=== PATIENT | female | born 1965 | race Caucasian/White ===

== ENCOUNTER 2025-03-17 21:01 | Inpatient (IN) | payer MEDICAID, SELFPAY ==
[2025-03-17] VITALS (28 sets, daily range): BP systolic 80–120; BP diastolic 51–79; PULSE 92–108; RESP 17–87; TEMP 36.4; O2SAT 60–100; BMI 38.7
--- NOTE | 2025-03-17 21:02 | EDNOTE_ITS ---
Neuro Symptoms Deficit-RME/HPI General Stated Complaint: SLURRED SPEECH, RIGHT SIDE FACIAL DROOP Time Seen by Provider: 03/17/25 21:10 Arrival date/time: 03/17/25 21:01 RME / HPI RME / HPI Narrative: This section includes all my notes and documentations, including HPI, PE, and ED course. Jama Foote MD HPI: 60yo female BIBA from home here with slurred speech and right-sided facial droop. Patient was seen by me immediately upon ED arrival at 2100. Her symptoms 40 minutes [employer]. Patient notes having difficulty articulating her words. Blood sugar en route was 115. No other complaints reported. ROS: All negative except as documented in HPI. Physical Exam: General: Alert and oriented. No acute distress. Eyes: Conjunctivae and lids clear. EOMI. PERRL. ENT: No nasal congestion. Neck: Supple. No carotid bruit. No JVD. Heart: RRR. Lungs: No respiratory distress. Moderately decreased air movement with diffuse wheezing. Abdomen: Soft and nontender. Legs: No clubbing, cyanosis, edema. Skin: Warm and dry. Neuro: Alert and oriented X 3. Right facial droop noted. Right leg weakness. I reviewed EMS notes. I reviewed all diagnostic test results. My interpretation of the EKG is sinus rhythm with no acute ST?T changes. My interpretation of the chest x-ray is infiltrates. My review of the CT head report is NAD. My review of the CT angio head neck report is NAD. Blood tests remarkable for WBC 34.3, Creatinine 1.4, Lactic Acid 2.7, Magnesium 1.3, Troponin 0.078, BNP 380, Procalcitonin 25.40, CRP 12.3. COVID/Influenza negative. At this point, diagnoses include CVA (cerebrovascular accident), Sepsis, Acute respiratory failure with hypoxia, Pneumonia, Elevated troponin, COPD exacerbation, Hypomagnesemia. Treatment here included NS, Zofran, Tnkase, Azithromycin, Rocephin, Magnesium, Duoneb. I discussed the case with Dr. Torres, teleneurologist. About the presentation and exam and diagnostics and treatments here. And need of further care in the hospital. Recommended TNK and admission. I discussed the case with our ICU resident. About the presentation and exam and diagnostics and treatments here. And need of further care in the hospital. Will accept the patient. Jama Foote MD Related Data Home Medications ?Medication ?Instructions ?Recorded ?Confirmed No Known Home Medications 10/15/2109/29 Allergies Allergy/AdvReac Type Severity Reaction Status Date / Time latex Allergy Verified 03/25/13 14:26 Review of Systems Review of Systems Systems Reviewed: All systems reviewed, normal except as documented Past Medical History Past Medical History CARDIAC: Negative Congestive Heart Failure RESPIRATORY: Negative Chronic Obstructive Pulmonary Disease (COPD) GENITOURINARY: Negative Renal Disease ENDOCRINE: Negative Diabetes Mellitus Type 1 or Diabetes Mellitus Type 2 Social History SMOKING STATUS: Current every day smoker ED Exam Narrative Physical exam: As noted in HPI. Course Course Course Narrative: 2217: Sepsis alert initiated. Orders made at this time are congruent with ED Adult Sepsis Order List. Re-evaluation is to be completed. NS IVF started at 2212. Sepsis re-evaluation is pending at the time of admission. Quality Measures Suspected type of Stroke: Acute Ischemic Tenecteplase given: within 60 min of arrival stroke and Possible source: pulmonary Blood cultures ordered: yes Antibiotic ordered: Yes Pertinent labs: 03/17/25 03/17/25 21:10 21:52 Lactic Acid 2.7 H mMol/L (0.4-2.0) Procalcitonin 25.40 H ng/ml (0.0-0.49) sepsis Orders Category Date Time Status Admit to Inpatient Status Routine Admission 03/17/25 22:57 Active Patient Condition Routine Admission 03/17/25 22:57 Ordered Aspiration precautions NOW Care 03/17/25 23:05 Active Bedside Blood Glucose NOW Care 03/17/25 21:03 Active Bedside COVID-19 Antigen Test NOW Care 03/17/25 21:39 Active Bedside Influenza A&B Antigen Test NOW Care 03/17/25 21:39 Completed COVID-19 Screening Questionnaire NOW Care 03/17/25 22:50 Active Jewelry Maker NOW Care 03/17/25 21:03 Active Continuous Pulse Oximetry NOW Care 03/17/25 21:03 Completed Continuous Pulse Oximetry NOW Care 03/17/25 23:02 Completed Decision to Admit X1 Care 03/17/25 22:50 Completed EKG (ED ONLY) *Do not use* NOW Care 03/17/25 21:03 Completed In and Out Catheter NEEDED Care 03/17/25 21:03 Active Insert IV NOW Care 03/17/25 21:03 Active NIH Stroke Scale Q4HX8,QSHIFT Care 03/17/25 21:46 Active NIH Stroke Scale now Care 03/17/25 21:03 Active NPO NOW Care 03/17/25 21:03 Active NPO NOW Care 03/17/25 23:05 Active Neuro Check Q15M Care 03/17/25 21:46 Active Neuro Check Q1H Care 03/18/25 05:30 Active Neuro Check Q30MIN Care 03/17/25 23:30 Active Notify provider NEEDED Care 03/17/25 22:57 Active Nurse Swallow Screen x1 Care 03/17/25 21:03 Active Seizure precautions NEEDED Care 03/17/25 23:03 Active Sequential Compression Device QSHIFT Care 03/17/25 23:08 Active Strict Intake and Output Routine Care 03/17/25 22:59 Ordered Vital Signs Q5M Care 03/17/25 21:36 Active Consult to Neurology / Tele-Neurology Routine Cons 03/17/25 21:03 Active Diet NPO (NOW) Diet 03/17/25 23:05 Active CA echo doppler complete Stat Exams 03/17/25 23:[address] angio stroke protocol Stat Exams 03/17/25 21:[address] stroke protocol Stat Exams 03/17/25 21:03 Completed EKG (ED Only) Stat Exams 03/17/25 21:03 Draft XR chest 1V portable Stat Exams 03/17/25 21:03 Completed Alcohol, Blood Medical Stat Lab 03/17/25 21:10 Completed Arterial Blood Gas Stat Lab 03/17/25 22:10 Completed B-Type Natriuretic Peptide Stat Lab 03/17/25 21:10 Completed Bilirubin,Direct Stat Lab 03/17/25 21:10 Completed Blood Culture (Lab) Stat Lab 03/17/25 21:52 Received CBC AM DRAW Lab 03/18/25 05:00 Ordered CBC AM DRAW Lab 03/19/25 05:00 Ordered CBC AM DRAW Lab 03/20/25 05:00 Ordered CBC Stat Lab 03/17/25 21:10 Completed CRP [C-Reactive Protein] Stat Lab 03/17/25 21:52 Completed Comprehensive Metabolic Panel AM DRAW Lab 03/18/25 05:00 Ordered Comprehensive Metabolic Panel AM DRAW Lab 03/19/25 05:00 Ordered Comprehensive Metabolic Panel AM DRAW Lab 03/20/25 05:00 Ordered Comprehensive Metabolic Panel Stat Lab 03/17/25 21:10 Completed Drug Screen,Urine Stat Lab 03/17/25 21:03 Ordered ESR [Sed Rate (ESR)] Stat Lab 03/17/25 21:52 Completed Free T4 (Free Thyroxine) Stat Lab 03/17/25 21:10 Completed Lactate (Lactic Acid) Routine Lab 03/18/25 03:00 Ordered Lactate (Lactic Acid) Stat Lab 03/17/25 21:10 Completed Lipid Panel AM DRAW Lab 03/18/25 05:00 Ordered Magnesium AM DRAW Lab 03/18/25 05:00 Ordered Magnesium AM DRAW Lab 03/19/25 05:00 Ordered Magnesium AM DRAW Lab 03/20/25 05:00 Ordered Magnesium Stat Lab 03/17/25 21:10 Completed Partial Thromboplastin Time AM DRAW Lab 03/18/25 05:00 Ordered Partial Thromboplastin Time Stat Lab 03/17/25 21:10 Completed Phosphorous AM DRAW Lab 03/18/25 05:00 Ordered Phosphorous AM DRAW Lab 03/19/25 05:00 Ordered Phosphorous AM DRAW Lab 03/20/25 05:00 Ordered Procalcitonin Stat Lab 03/17/25 21:52 Completed Prothrombin Time with INR AM DRAW Lab 03/18/25 05:00 Ordered Prothrombin Time with INR Stat Lab 03/17/25 21:10 Completed TSH [Thyroid Stimulating Hormone] Stat Lab 03/17/25 21:10 Completed Troponin I Q6H Lab 03/18/25 03:00 Ordered Troponin I Q6H Lab 03/18/25 09:00 Ordered Troponin I Q6H Lab 03/18/25 15:00 Ordered Troponin I Q6H Lab 03/18/25 21:00 Ordered Troponin I Q6H Lab 03/19/25 03:00 Ordered Troponin I Stat Lab 03/17/25 21:10 Completed Urinalysis Stat Lab 03/17/25 21:03 Ordered Urine Culture Stat Lab 03/17/25 21:03 Ordered Acetaminophen Tab [Tylenol Tab] Med 03/17/25 23:02 Active 650 mg PO Q6H PRN Albuterol/Ipratr Rt Julisa [Duoneb Rt Julisa] Med 03/18/25 03:00 Active 3 ml INH Q4HRRT Albuterol/Ipratr Rt Julisa [Duoneb Rt Julisa] Med 03/17/25 22:43 Discontinued 3 ml INH X1 ONE Azithromycin Inj [Zithromax Inj] 500 mg Med 03/17/25 22:23 Discontinued Sodium Chloride 0.9% 250 ml [Ns] 250 ml IV X1 Famotidine Inj [Pepcid Inj] Med 03/18/25 09:00 Active 20 mg IVP DAILY Labetalol IV [Trandate IV] Med 03/17/25 21:31 Active 10 mg IVP PRNMRX1 PRN Labetalol IV [Trandate IV] Med 03/17/25 21:31 Active 10 mg IVP PRNMRX1 PRN Labetalol IV [Trandate IV] Med 03/17/25 21:03 Discontinued 10 mg IVP Q15M PRN Magnesium Sulfate 2 GM Ivpb [Magnesium Sulfate Ivpb] Med 03/17/25 22:19 Discontinued 2 gm in 50 ml IV X1 MethylPREDNISolone.* [SoluMEDROL Inj] Med 03/17/25 22:43 Discontinued 125 mg IVP X1 ONE Nicardipine/Ns 20Mg Ivpb [Cardene Ivpb] Med 03/17/25 21:31 Active 20 mg in 200 ml IV 5 mg/hr Ondansetron Inj [Zofran Inj] Med 03/17/25 21:03 Active 4 mg IVP Q4HR PRN Ondansetron Inj [Zofran Inj] Med 03/17/25 23:02 Active 4 mg IVP Q6H PRN Sodium Chloride 0.9% 1000 ml [Ns] 1,000 ml Med 03/17/25 22:19 Discontinued IV 999 mls/hr Sodium Chloride 0.9% 1000 ml [Ns] 1,000 ml Med 03/17/25 21:15 Active IV Q10H Tenecteplase Inj [TNKase Inj] Med 03/17/25 21:31 Discontinued 25 mg IV X1 ONE cefTRIAXone/D5w 1gm IV premix [Rocephin/D5w 1gm IV Med 03/17/25 22:19 Discontinued premix] 1 gm in 50 ml IV X1 Code Status Routine Oth 03/17/25 22:57 Ordered Oxygen Delivery NOW RT 03/17/25 21:03 Active Vital Signs Vital signs: Vital Signs Pulse Rate 104 H 07/20/25 21:23 Neuro Symptoms / Deficit MDM Narrative MDM Narrative:: 60yo female BIBA from home here with slurred speech and right-sided facial droop. Patient was seen by me immediately upon ED arrival at 2100. Per EMS, patient started having her symptoms 40 minutes [employer]. Patient notes having difficulty articulating her words. Blood sugar en route was 115. No other complaints reported. Patient data External records reviewed:: [facility] previous records (Per chart review, patient has no relevant previous ED visits or admissions to this facility.) and EMS form Clinical information provided by:: patient and EMS Social determinants that could affect healthcare access:: none Patient has the following chronic illnesses:: COPD How is presenting disease/condition affected by chronic disease/condition?: uneffected by Evaluation data The following diagnostics were reviewed and interpreted by me:: lab results, radiology exam(s) and EKG tracing(s) (My interpretation of the EKG is: Sinus tachycardia (104 bpm) with nonspecific ST-T changes. Jama Foote MD) Lab and/or radiology exams considered but not ordered:: none Interpretation Summary: I reviewed all diagnostic test results. My interpretation of the EKG is sinus rhythm with no acute ST?T changes. My interpretation of the chest x-ray is infiltrates. My review of the CT head report is NAD. My review of the CT angio head neck report is NAD. Blood tests remarkable for WBC 34.3, Creatinine 1.4, Lactic Acid 2.7, Magnesium 1.3, Troponin 0.078, BNP 380, Procalcitonin 25.40, CRP 12.3. COVID/Influenza negative. Medications / Prescriptions Medications or Prescriptions considered but not ordered:: none Medication administrations:: Medication Administration History Acetaminophen (Acetaminophen 325 Mg Tablet) 650 mg PO Q6H PRN PRN Reason: Fever >101.5 Stop: 04/16/25 23:01 Acetylcysteine (Acetylcysteine Rt Julisa 10% 4 Ml Nebu) 3 ml INH Q4HRRT PRN PRN Reason: SHORTNESS OF BREATH OR WHEEZE Stop: 04/17/25 01:29 Last Admin: 03/18/25 01:59 Dose: 3 ml Documented By: GB Albuterol/Ipratropium (Albuterol/Ipratropium (Duoneb) Rt Julisa 3 Ml Nebu) 3 ml INH Q4HRRT [facility] Stop: 04/17/25 02:59 Last Admin: 03/18/25 01:59 Dose: 3 ml Documented By: GB Famotidine (Famotidine Inj 10 Mg/Ml Vial 2 Ml) 20 mg IVP DAILY [facility] Stop: 04/17/25 08:59 Sodium Chloride (Ns) 1,000 mls @ 100 mls/hr IV Q10H [facility] Stop: 04/16/25 21:14 Last Admin: 03/17/25 22:13 Dose: 100 mls/hr Documented By: CRISTHIAN Nicardipine/Sodium Chloride (Cardene Ivpb) 20 mg in 200 mls @ 50 mls/hr IV .Q4H PRN; Protocol PRN Reason: Per Nicardipine Stroke Protocol Stop: 04/16/25 21:30 Piperacillin/Tazobactam/Dextrose (Zosyn) 50 mls @ 100 mls/hr IV Q6HR [facility] Stop: 03/24/25 23:22 Vancomycin/Sodium Chloride (Vancomycin/Ns 1 Gm Ivpb) 200 mls @ 120 mls/hr IV Q100M [facility] Stop: 03/18/25 03:04 Last Admin: 03/18/25 00:34 Dose: 120 mls/hr Documented By: RACHNA Labetalol HCl (Labetalol Inj 5 Mg/Ml Vial 20 Ml) 10 mg IVP PRNMRX1 PRN PRN Reason: SBP > 185 mmHg and/or DBP > 110 Labetalol HCl (Labetalol Inj 5 Mg/Ml Vial 20 Ml) 10 mg IVP PRNMRX1 PRN PRN Reason: SBP > 180 mmHg or DBP > 105 Ondansetron HCl (Ondansetron Inj 2 Mg/Ml Inj 2 Ml) 4 mg IVP Q4HR PRN PRN Reason: NAUSEA OR VOMITING Stop: 04/16/25 21:02 Ondansetron HCl (Ondansetron Inj 2 Mg/Ml Inj 2 Ml) 4 mg IVP Q6H PRN; Protocol PRN Reason: NAUSEA OR VOMITING Stop: 04/16/25 23:01 Pharmacy Consult (Vancomycin Pharmacy To Dose 1 Each Each) 1 each IV QDAY [facility] Stop: 04/17/25 08:59 Discontinued Medications Acetylcysteine (Acetylcysteine Rt Julisa 10% 30 Ml Nebu) 3 ml INH X1 ONE Stop: 03/18/25 01:19 Albuterol/Ipratropium (Albuterol/Ipratropium (Duoneb) Rt Julisa 3 Ml Nebu) 3 ml INH X1 ONE Stop: 03/17/25 22:44 Last Admin: 03/17/25 23:24 Dose: 3 ml Documented By: ANDREW Ceftriaxone Sodium/Dextrose (Rocephin/D5w 1gm Iv Premix) 1 gm in 50 mls @ 100 mls/hr IV X1 ONE Stop: 03/17/25 22:48 Last Infusion: 03/17/25 23:20 Dose: Infused Documented By: Admin: 03/17/25 22:48 Dose: 100 mls/hr Documented By: CRISTHIAN Magnesium Sulfate (Magnesium Sulfate Ivpb) 2 gm in 50 mls @ 25 mls/hr IV X1 ONE Stop: 03/18/25 00:18 Last Admin: 03/18/25 00:28 Dose: 25 mls/hr Documented By: RACHNA Sodium Chloride (Ns) 1,000 mls @ 999 mls/hr IV .Q1H1M ONE Stop: 03/17/25 23:19 Last Admin: 03/17/25 22:48 Dose: 999 mls/hr Documented By: CRISTHIAN Azithromycin 500 mg/ Sodium (Chloride) 250 mls @ 250 mls/hr IV X1 ONE Stop: 03/17/25 23:22 Last Admin: 03/17/25 23:44 Dose: 250 mls/hr Documented By: RACHNA Potassium Chloride (Kcl Ivpb) 10 meq in 100 mls @ 100 mls/hr IV Q1H [facility] Stop: 03/18/25 01:27 Last Admin: 03/18/25 00:30 Dose: 50 mls/hr Documented By: RACHNA Sodium Chloride (Ns) 1,000 mls @ 999 mls/hr IV .Q1H1M ONE Stop: 03/18/25 00:29 Last Admin: 03/18/25 00:00 Dose: 999 mls/hr Documented By: RACHNA Piperacillin/Tazobactam/Dextrose (Zosyn) 3.375 gm in 50 mls @ 100 mls/hr IV X1 ONE Stop: 03/17/25 23:59 Last Admin: 03/18/25 01:10 Dose: 100 mls/hr Documented By: RACHNA Labetalol HCl (Labetalol Inj 5 Mg/Ml Vial 20 Ml) 10 mg IVP Q15M PRN PRN Reason: HYPER Methylprednisolone Sodium Succinate (Methylprednisolone Sod Succ 62.5 Mg/Ml 2ml Vial) 125 mg IVP X1 ONE Stop: 03/17/25 22:44 Last Admin: 03/17/25 23:10 Dose: 125 mg Documented By: CRISTHIAN Sodium Chloride (Sodium Chloride Rt 10% 15 Ml Nebu) 5 ml INH X1 ONE Stop: 03/18/25 00:19 Tenecteplase (Tenecteplase Inj 50 Mg Vial) 25 mg IV X1 ONE Stop: 03/17/25 21:32 Last Admin: 03/17/25 21:42 Dose: 25 mg Documented By: CRISTHIAN Co-signed By: JANA NS, Zofran, Tnkase, Azithromycin, Rocephin, Magnesium, Duoneb, Solumedrol Consultations Consultation(s) initiated? (list below): Yes Consultation #1 (Physician, Specialty, Details): I discussed the case with our teleneurologist. About the presentation and exam and diagnostics and treatments here. And need of further care in the hospital. Recommended TN K on admission. Consultation #2 (Physician, Specialty, Details): I discussed the case with our ICU resident. About the presentation and exam and diagnostics and treatments here. And need of further care in the hospital. Will accept the patient. Diagnosis Neuro Differential Diagnosis: subarachnoid hemorrhage, cerebrovascular accident and transient cerebral ischemia Most likely diagnosis given after review of the tests above:: CVA (cerebrovascular accident), Sepsis, Acute respiratory failure with hypoxia, Pneumonia, Elevated troponin, COPD exacerbation Admission Indicated Admission indicated?: indicated Explain why admission is indicated or not indicated:: CVA (cerebrovascular accident), Sepsis, Acute respiratory failure with hypoxia, Pneumonia, Elevated troponin, COPD exacerbation Admission Request Was there a request for admission?: Yes Admission Attestation Admission request attestation: Discussed case with ICU service regarding admission. Discussed patients ED course, exam findings, labs, and radiology results. The Hospitalist [agrees] to accept the patient for admission. Disposition Plan Disposition Plan: Admit Critical Care Time Critical Care Time Critical Care Time: Yes Total Critical Care Time (min.): 50 Attestation: Due to a high probability of clinically significant, life threatening deterioration, the patient required my highest level of preparedness to intervene emergently and I personally spent this critical care time directly and personally managing the patient. This critical care time included obtaining a history; examining the patient; ordering and review of studies; arranging urgent treatment with development of a management plan; evaluation of patient's response to treatment; frequent reassessment; and discussions with family and other providers. It was exclusive of separately billable procedures and treating other patients and teaching time. Jama Foote MD Discharge Plan Plan Patient Disposition: Admit Acute Care w/in Hospital Problem List Clinical Impression: CVA (cerebrovascular accident), Sepsis, Acute respiratory failure with hypoxia, Pneumonia, Elevated troponin, COPD exacerbation, Hypomagnesemia
--- NOTE | 2025-03-17 21:02 | PC.NURSE ---
Case Consult 03/17/2025 21:02:27 [facility] Case # [id number] has been created.
--- NOTE | 2025-03-17 21:03 | XR_ITS ---
Examination: CT brain head without contrast. 2-D sagittal coronal reconstructions Date and time of exam:March 17, 2025 2110 hours INDICATIONS: Stroke alert, onset focal neurologic deficit today CTDI: vol (mGy):47.7. DLP: (mGycm):904 Technique: Multiple CT axial sections of the brain have been obtained, 5 mm slice thickness. Contrast has not been administered. 2-D sagittal, coronal reconstructions have been obtained Low dose protocols were performed. One or more of the following dose reduction techniques were used; automated exposure control, adjustment of the mA and/or KV according to patient size, use of iterative reconstruction technique. Findings: No significant ventricular enlargement. Intra-axial or extra-axial hemorrhage density is not seen. No mass effect or midline shift Basal cisterns are not remarkable. Fourth ventricle is midline. Cranial vault intact. Impression: Negative for acute hemorrhage, mass effect or midline shift
--- NOTE | 2025-03-17 21:03 | EKG_ITS ---
[facility] Test Date: 2025-03-17 Pat Name: NIESHA STONE Department: Room: - Gender: Female [employer]: : 1965 Requested By: Jama Modi Order Number: [id number] Reading MD: Jama Modi Measurements Intervals [place] Rate: 104 P: 38 KS: 175 QRS: 53 QRSD: 85 T: 51 QT: 331 QTc: 436 Interpretive Statements SINUS TACHYCARDIA LOW QRS VOLTAGE IN PRECORDIAL LEADS [QRS DEFLECTION < 1.0 mV IN CHEST LEADS] POSSIBLE ANTERIOR MYOCARDIAL INFARCTION , PROBABLY OLD [30 ms Q WAVE IN V3/V4, OR R < 0.2 mV IN V4] ABNORMAL RHYTHM ECG No previous ECG available for comparison /store/S0/[id number].pdf
--- NOTE | 2025-03-17 21:03 | XR_ITS ---
Examination: AP chest single view Technique one AP portable upright chest single view Date and time: March 17, 2025 at 2144 hours, comparison October 15, 2021 INDICATIONS: Focal neurologic deficit today. FINDINGS: Fairly diffuse left lung pneumonia Normal heart size Right lung clear. Osseous structures intact IMPRESSION: Diffuse left lung pneumonia, consider aspiration pneumonia
--- NOTE | 2025-03-17 21:03 | XR_ITS ---
Examination: CTA carotids with intravenous contrast CTA brain, head with intravenous contrast. 2-D sagittal, coronal reconstructions. 3-D reconstructions. Exam date and time: March 17, 2025 2115 hours INDICATIONS: Stroke alert today, onset focal neurologic deficit CTDI: vol (mGy) 11.6 DLP: (mGycm) 75 Technique: Multiple CTA axial brain, head carotid images post intravenous contrast injection 70 cc, [id number]. 2-D sagittal, coronal reconstructions. 3-D reconstructions, 3-D post processing including vascular maximum intensity projection images. Low dose protocols were performed. One or more of the following dose reduction techniques were used; automated exposure control, adjustment of the mA and/or KV according to patient size, use of iterative reconstruction technique. Findings: 1 infiltrate in the left upper lobe No common carotid carotid bifurcation without significant internal carotid artery stenoses Dominant right vertebral artery with no critical stenoses No cerebral or thrush lateral occlusions, thrombus, or dissection IMPRESSION: No significant neck arterial stenoses No cerebral large vessel arterial occlusions or thrombus
[2025-03-17 21:30] LABS: Basophils # (Auto) 0.1 Thou/mm3 (0.0-0.2); Basophils % (Auto) 0 % (0-2.5); Eosinophils # (Auto) 0.0 Thou/mm3 (0.0-0.5); Eosinophils % (Auto) 0 % (0-10); Hematocrit 41.0 % (36.0-46.0); Hemoglobin 13.9 g/dL (12.0-16.0); Immature Granulocytes Auto 0.91 Thou/mm3 (0.00-0.00); Lymphocytes # (Auto) 1.5 Thou/mm3 (1.0-4.8); Lymphocytes % (Auto) 5 % (10-50); Mean Corpuscular HGB Conc 33.9 g/dl (31.0-37.0); Mean Corpuscular Hemoglobin 30.3 pg (25.0-35.0); Mean Corpuscular Volume 89 fL (80-100); Monocytes # (Auto) 1.8 Thou/mm3 (0.0-0.8); Monocytes % (Auto) 5 % (0-12); Neutrophils # (Auto) 29.9 Thou/mm3 (1.8-7.7); Neutrophils % (Auto) 87 % (37-80); Nucleated Red Blood Cell # 0.00 Thou/mm3 (0.00-0.00); Nucleated Red Blood Cell % 0 /100 WBC (0); Platelet Count 324 Thou/mm3 (140-440); RDW Standard Deviation 45.6 fL (36.4-46.3); Red Blood Count 4.59 Miln/mm3 (4.00-5.20); White Blood Count 34.3 Thou/mm3 (3.6-11.0)
[2025-03-17] MEDS: TENECTEPLASE INJ 50 MG VIAL 25 MG IV (21:42)
[2025-03-17 21:54] LABS: B-Type Natriuretic Peptide 380 pg/mL (0-100)
[2025-03-17 22:00] LABS: INR 1.2 (0.9-1.3); Partial Thromboplastin Time 33.9 Seconds (22.0-36.0); Prothrombin Time 13.2 Seconds (9.0-12.2)
[2025-03-17 22:01] LABS: Lactate (Lactic Acid) 2.7 mMol/L (0.4-2.0)
[2025-03-17 22:05] LABS: Anion Gap 11 (7-16); BUN/Creatinine Ratio 10 Ratio (12-20); Blood Urea Nitrogen 14 mg/dL (9-23); Carbon Dioxide 25.4 mMol/L (20.0-31.0); Chloride 99 mMol/L (98-107); Creatinine (Component) 1.4 mg/dL (0.6-1.3); Potassium 3.5 mMol/L (3.4-5.1); Sodium 135 mMol/L (136-145)
[2025-03-17 22:06] LABS: Alanine Aminotransferase 8 U/L (10-49); Albumin, Serum 3.5 gm/dL (3.4-4.8); Albumin/Globulin Ratio 1.2 (1.2-2.2); Alcohol, Blood Medical < 3.0 mg/dL (0-10.0); Alkaline Phosphatase 89 U/L (46-116); Aspartate Amino Transferase 19 U/L (0-34); Bilirubin,Direct 0.6 mg/dL (0.0-0.3); Bilirubin,Total 1.4 mg/dL (0.3-1.2); Calcium 8.9 mg/dL (8.3-10.6); Calcium (Corrected) 9.3 mg/dL (8.5-10.1); Estimated Creatinine Clearance 56.3 mL/min (>60); Free T4 (Free Thyroxine) 1.45 ng/dL (0.89-1.76); Globulin 3.0 gm/dL (2.3-3.5); Glucose 122 mg/dL (74-106); Magnesium 1.3 mg/dL (1.6-2.6); Osmolality,Calculated 271 (275-295); Thyroid Stimulating Hormone 3.78 uIU/mL (0.55-4.78); Total Protein 6.5 gm/dL (5.7-8.2); eGFR 43 See Note
--- NOTE | 2025-03-17 22:06 | ESCONSULT_ITS ---
Tele Neuro Consultation Consultation Date 03/17/25 Most Recent Vital Signs Last Vital Signs Temp 97.5 F 03/17/25 21:38 Pulse 96 03/17/25 21:57 Resp 20 03/17/25 21:57 BP 111/65 03/17/25 21:57 Pulse Ox 92 L 03/17/25 21:57 O2 Del Method Nasal Cannula 03/17/25 21:57 O2 Flow Rate 2 03/17/25 21:39 Laboratory-Coagulation Panel PT 13.2 Seconds (9.0-12.2) H 03/17/25 21:10 INR 1.2 (0.9-1.3) 03/17/25 21:10 APTT 33.9 Seconds (22.0-36.0) 03/17/25 21:10 Consultation Narrative [facility] Tele[facility]urology Consult Services Patient Name:???NIESHA NEGRO Date of :???1965 Date of Service:???03/17/2025 21:02:27 Diagnosis:?I63.312 - Cerebrovascular accident (CVA) due to thrombosis of left middle cerebral artery (HCCC) Impression: ?Mrs. Negro is a 60 year old woman with left ischemic stroke symptoms and left M1 occlusion on my interpretation of the CTA. I could not reach radiologist reading the films. I recommended TNK and after understanding the risk and benefits of the medication the patient and her agreed to proceed with TNK. I recommended transfer for thrombectomy evaluation. ? ?She will need to follow the post TNK protocol of blood pressure monitoring and neuro checks, goal <180/105. No antithrombotics for 24 hours. Repeat HCT in 24 hours. She will need echo with PFO study, cardiac monitoring, LDL goal <70 with atorvastatin 80mg, A1C goal <7, smoking cessation. Our recommendations are outlined below. Recommendations: IV Tenecteplase recommended. I confirmed the following. (Patient name, , MRN, Blood Pressure, dose of Thrombolytic and waste, weight completed by stretcher/scale not stated weight, have ED staff inform ED MD of thrombolytic decision) Thrombolytic bolus given Without Complication. IV Tenecteplase Total Dose ? 25.0 mg (Dose Rounding Per Facility Protocol) Routine post Thrombolytic monitoring including neuro checks and blood pressure control during/after treatment Monitor blood pressure Check blood pressure and neuro assessment every 15 min for 2 h, then every 30 min for 6 h, and finally every hour for 16 h. Manage Blood Pressure per post Thrombolytic protocol. ? Follow designated hospital protocol for admission and post thrombolytic care ? CT brain 24 hours post Thrombolytic ? NPO until swallowing screen performed and passed ? No antiplatelet agents or anticoagulants (including heparin for DVT prophylaxis) in first 24 hours ? No Soto catheter, nasogastric tube, arterial catheter or central venous catheter for 24 hr, unless absolutely necessary ? Telemetry ? Bedside swallow evaluation ? HOB less than 30 degrees ? Euglycemia ? Avoid hyperthermia, PRN acetaminophen ? DVT prophylaxis ? Inpatient Neurology Consultation ? Stroke evaluation as per inpatient neurology recommendations Discussed with ED physician Advanced Imaging: CTA Head and Neck Completed. LVO:Yes Discussed with MARVIN :No Metrics: Last Known Well: 03/17/2025 20:30:00 Dispatch Time: 03/17/2025 21:02:27 Arrival Time: 03/17/2025 21:02:00 Initial Response Time: 03/17/2025 21:13:12Symptoms: right sided weakness slurred speech. Initial patient interaction: 03/17/2025 21:22:00 NIHSS Assessment Completed: 03/17/2025 21:27:29Patient is a candidate for Thrombolytic. Thrombolytic Medical Decision: 03/17/2025 21:27:31 Needle Time: 03/17/2025 21:42:33Weight Noted by Staff: [address] Head: I personally reviewed all the CT images that were available to me and it showed: no hemorrhage Primary Provider Notified of Diagnostic Impression and Management Plan on: 03/17/2025 21:40:00 Thrombolytic Contraindications: Last Known Well > 4.5 hours:?No CT Head showing hemorrhage:?No Ischemic stroke within 3 months:?No Severe head trauma within 3 months:?No Intracranial/intraspinal surgery within 3 months:?No History of intracranial hemorrhage:?No Symptoms and signs consistent with an SAH:?No GI malignancy or GI bleed within 21 days:?No Coagulopathy: Platelets <100 000 /mm3, INR >1.7, aPTT>40 s, or PT >15 s:?No Treatment dose of LMWH within the previous 24 hrs:?No Use of NOACs in past 48 hours:?No Glycoprotein IIb/IIIa receptor inhibitors use:?No Symptoms consistent with infective endocarditis:?No Suspected aortic arch dissection:?No Intra-axial intracranial neoplasm:?No Thrombolytic Decision and Management Plan: Management with thrombolytic treatment was explained to the Patient and Family as was risks and benefits and alternatives to the treatment. Patient agrees with the decision to proceed with thrombolytic treatment. . All questions were answered and the Patient and Family expressed understanding of the treatment plan. History of Present Illness:Patient is a 60 year old Female. Patient was brought by EMS for symptoms of right sided weakness slurred speech. 60 year old woman with acute onset of slurred speech and right hemiparesis that started about 30 minutes prior to arrival according to her who is at bedside. He noticed the sudden right facial droop and in the ED a right leg weakness was also noticed. The patient endorses new onset right sided deficits with dysarthria complaints. She is able to clear contraindications for TNK and confirmed with her . She completed a course of antibiotics recently for cellulitis but no blood infection was reported to the or patient. She is not complaining of chest pain. Past Medical History: ?There is no history of Stroke Medications: No Anticoagulant use? No Antiplatelet use Reviewed EMR for current medications Allergies:? Reviewed Description:?latex Social History: Smoking: Yes Family History: There is no family history of premature cerebrovascular disease pertinent to this consultation ROS : 14 Points Review of Systems was performed and was negative except mentioned in HPI. Past Surgical History: There Is No Surgical History Contributory To Today?s Visit Examination: BP(104/60),?Pulse(90),?Blood Glucose(144) 1A: Level of Consciousness - Alert; keenly responsive?+ 0 1B: Ask Month and Age - Both Questions Right?+ 0 1C: Blink Eyes & Squeeze Hands - Performs Both Tasks?+ 0 2: Test Horizontal Extraocular Movements - Normal?+ 0 3: Test Visual Young - No Visual Loss?+ 0 4: Test Facial Palsy (Use Grimace if Obtunded) - Partial paralysis (lower face)? + 2 5A: Test Left Arm Motor Drift - No Drift for 10 Seconds?+ 0 5B: Test Right Arm Motor Drift - No Drift for 10 Seconds?+ 0 6A: Test Left Leg Motor Drift - No Drift for 5 Seconds?+ 0 6B: Test Right Leg Motor Drift - Drift, hits bed?+ 2 7: Test Limb Ataxia (FNF/Heel-[place]) - No Ataxia?+ 0 8: Test Sensation - Mild-Moderate Loss: Less Sharp/More Dull?+ 1 9: Test Language/Aphasia - Normal; No aphasia?+ 0 10: Test Dysarthria - Mild-Moderate Dysarthria: Slurring but can be understood?+ 1 11: Test Extinction/Inattention - No abnormality?+ 0 NIHSS Score:?6 Pre-Morbid Modified Kiln Scale:0 Points = No symptoms at all Spoke with :?Dr Foote This consult was conducted in real time using interactive audio and video technology. Patient was informed of the technology being used for this visit and agreed to proceed. Patient located in hospital and provider located at home/office setting. Patient is being evaluated for possible acute neurologic impairment and high probability of imminent or life-threatening deterioration. I spent total of 60 minutes providing care to this patient, including time for face to face visit via telemedicine, review of medical records, imaging studies and discussion of findings with providers, the patient and/or family. Dr Edwar Torres [facility] For Inpatient follow-up with [facility] physician please call [facility] at . As we are not an outpatient service for any post hospital discharge needs please contact the hospital for assistance. If you have any questions for the [facility] physicians or need to reconsult for clinical or diagnostic changes please contact us via [facility] at .
[2025-03-17 22:09] LABS: Sed Rate (ESR) 30 mm/hr (0-30)
[2025-03-17 22:11] LABS: Troponin I 0.078 ng/mL (0.0-0.045)
[2025-03-17] MEDS: SODIUM CHLORIDE 0.9% 1000 ML 1,000 ML 100 ML IV (22:13)
[2025-03-17 22:14] LABS: Allen Test Performed/OK; Base Excess 2 (-3-3); HCO3 27 mEq/L (20-26); Inspired O2, VO2 Liters 2 L/min; O2 Saturation 90 % (91-98); PCO2 43 mmHg (32.0-48.0); PO2 60 mmHg (83-108); Puncture Site Right Radial; pH, Arterial 7.41 (7.35-7.45)
[2025-03-17 22:33] LABS: Procalcitonin 25.40 ng/ml (0.0-0.49)
[2025-03-17 22:37] LABS: C-Reactive Protein 12.3 mg/dL (0.0-0.9)
[2025-03-17] MEDS: cefTRIAXone/D5w 1gm IV premix 1 GM/50 ML BAG IV (22:48)
[2025-03-17] MEDS: SODIUM CHLORIDE 0.9% 1000 ML 1,000 ML 999 ML IV (22:48)
[2025-03-17] MEDS: MethylPREDNISolone SOD SUCC 62.5 MG/ML 2ML VIAL 125 MG IVP (23:10)
--- NOTE | 2025-03-17 23:11 | PC.NURSE ---
DR. ACKERMNA CALLED TO BEDSIDE D/T CONCERNED WITH CHANGE IN PT. PT APPEARS MORE DROWSY. PER PT WAS HAVING HARD TIME GETTING WORDS OUT. PT ALERT AND ORIENTED AT THIS TIME. DENIES ANY PAIN. WILL CONTINUE WITH PLAN OF CARE.
[2025-03-17] MEDS: ALBUTEROL/IPRATROPIUM (Duoneb) RT SOL 3 ML NEBU INH (23:24)
--- NOTE | 2025-03-17 23:30 | ESHP_ITS ---
Documentation for date of: 03/17/25 [facility] History of Present Illness Chief complaint: right facial droop History of present illness: Patient is 60 years old female with past medical history of hypertension, methamphetamine use disorder, obesity presented to the ED due to right facial droop and slurred speech. Her at the bedside helps with his medical history. They reported that patient woke up today was feeling extremely weak and tired and was sleeping most of the day. Around afternoon her checked on her and she was complaining of worsening respiration and productive cough, no fever or chills were reported. He came back to check on her around 8:30 PM and found her with right facial droop and slurred speech and immediately called EMS. Patient is active tobacco smoker for many years approximately 1 pack a day and prolonged history of methamphetamine use, reported last use 5 days ago. She was previously diagnosed with hypertension but never been taking any medications. She does not have diabetes. She denies any chest pain, abdominal pain, fever, chills. She reported that she was on 3 different antibiotics over the last 3 weeks for left lower extremity cellulitis which has failed to improve. She has never been diagnosed with COPD and never been prescribed home oxygen. On admission to the ED her blood pressure 96/51, pulse 104, respirations 24, temperature 97.5 ?F, oxygen saturation 97% on room air. Labs showed WBC 34.3, sodium 135, creatinine 1.4, glucose 122, lactic acid 2.7, magnesium 1.3, total bilirubin 1.4, troponin I 0.078, CRP 12.3, BNP 383, procalcitonin 25.4. CT of the head did not show hemorrhage or mass effect. CTA did not show any LVO. EKG showed sinus tachycardia. Chest x-ray showed left lower lobe pneumonia possibly aspiration. Teleneurology was consulted in the ED and recommended to administer TNK, NIHSS Score:?6. Patient was given tenecteplase 25 mg at 2142 on 03/17/2025. Her facial droop and speech has improved significantly. Patient was admitted to ICU for further management. PMH: hypertension, methamphetamine use disorder, obesity. PSH: . SH: Denies drinking alcohol, smokes cigarettes 1 pack a day for many years. Uses methamphetamine approximately once a week for many years. FH: None. Allergies: NKA. Medications: None. Review of Systems Review of Systems Systems Reviewed: All systems reviewed, normal except as documented Exam Vital Signs Temp Pulse Resp BP Pulse Ox O2 Del Method O2 Flow Rate 97.5 F 94 20 106/60 93 L Nasal Cannula 2 03/17/25 21:38 03/17/25 23:27 03/17/25 23:27 03/17/25 23:27 03/17/25 23:27 03/17/25 23:27 03/17/25 23:27 Narrative Exam Gen: Well-developed and well-nourished obese female. HEENT: NCAT, PERRLA, EOMI, MMM, anicteric conjunctivae, minimal facial droop noted on the right. CVS: normal S1 and S2. Regular tachycardia. No M/R/G. Resp: Rhonchi B/L. No rales, crackles or wheezing. Abd: soft, obese, non-tender, non-distended. BS+ in all 4 quadrants. MSK: Good ROM in BUE & BLE. No edema. Erythema and dry skin over her left lower extremity, nontender to touch. Neuro: CN II-XII grossly intact. Strength 5/5 in BUE & BLE. Alert and oriented x3. Results: Labs 03/18/25 03:09 03/18/25 03:09 Labs: Short CBC 03/17/25 Range/Units 21:10 WBC 34.3 H (3.6-11.0) Thou/mm3 Hgb 13.9 (12.0-16.0) g/dL Hct 41.0 (36.0-46.0) % Plt Count 324 (140-440) Thou/mm3 BMP 03/17/25 21:10 Sodium 135 L Potassium 3.5 Chloride 99 Carbon Dioxide 25.4 BUN 14 Creatinine 1.4 H Glucose 122 H Calcium 8.9 Cardiac Enzymes 03/17/25 Range/Units 21:10 Troponin I 0.078 H* (0.0-0.045) ng/mL Liver Function 03/17/25 Range/Units 21:10 Total Bilirubin 1.4 H (0.3-1.2) mg/dL Direct Bilirubin 0.6 H (0.0-0.3) mg/dL AST 19 (0-34) U/L ALT 8 L (10-49) U/L Alkaline Phosphatase 89 (46-116) U/L Albumin 3.5 (3.4-4.8) gm/dL ABG Interpretation ABG results: 03/17/25 22:10 ABG pH 7.41 ABG pCO2 43 ABG pO2 60 L ABG HCO3 27 H ABG O2 Saturation 90 L ABG Base Excess 2 Quality Measures Quality Measures stroke Suspected type of Stroke: Acute Ischemic Last known well (date): 03/17/25 Tenecteplase given: within 60 min of arrival Rehab services: PT evaluation ordered and Speech Language Pathology eval ordered VTE Prophylaxis: mechanical Antithrombotic by day 2:: not indicated (describe) Statin ordered: n/a Anticoagulation ordered for A-fib or flutter (current or hx): not indicated and sepsis Current suspected stage: sepsis Possible source: pulmonary Blood cultures ordered: yes Antibiotic ordered: Yes Medications Home Medications and Allergies Home Medications ?Medication ?Instructions ?Recorded ?Confirmed ?Type No Known Home Medications 10/15/2109/29 History Allergies Allergy/AdvReac Type Severity Reaction Status Date / Time latex Allergy Verified 03/25/13 14:26 Visit Medications Acetaminophen (Acetaminophen 325 Mg Tablet) 650 mg PO Q6H PRN PRN Reason: Fever >101.5 Stop: 04/16/25 23:01 Albuterol/Ipratropium (Albuterol/Ipratropium (Duoneb) Rt Julisa 3 Ml Nebu) 3 ml INH Q4HRRT MERCEDES Stop: 04/17/25 02:59 Famotidine (Famotidine Inj 10 Mg/Ml Vial 2 Ml) 20 mg IVP DAILY MERCEDES Stop: 04/17/25 08:59 Sodium Chloride (Ns) 1,000 mls @ 100 mls/hr IV Q10H MERCEDES Stop: 04/16/25 21:14 Last Admin: 03/17/25 22:13 Dose: 100 mls/hr Nicardipine/Sodium Chloride (Cardene Ivpb) 20 mg in 200 mls @ 50 mls/hr IV .Q4H PRN; Protocol PRN Reason: Per Nicardipine Stroke Protocol Stop: 04/16/25 21:30 Magnesium Sulfate (Magnesium Sulfate Ivpb) 2 gm in 50 mls @ 25 mls/hr IV X1 ONE Stop: 03/18/25 00:18 Piperacillin/Tazobactam/Dextrose (Zosyn) 50 mls @ 100 mls/hr IV Q6HR MERCEDES Stop: 03/24/25 23:22 Potassium Chloride (Kcl Ivpb) 10 meq in 100 mls @ 100 mls/hr IV Q1H MERCEDES Stop: 03/18/25 01:27 Sodium Chloride (Ns) 1,000 mls @ 999 mls/hr IV .Q1H1M ONE Stop: 03/18/25 00:29 Labetalol HCl (Labetalol Inj 5 Mg/Ml Vial 20 Ml) 10 mg IVP [id number] PRN PRN Reason: SBP > 185 mmHg and/or DBP > 110 Labetalol HCl (Labetalol Inj 5 Mg/Ml Vial 20 Ml) 10 mg IVP [id number] PRN PRN Reason: SBP > 180 mmHg or DBP > 105 Ondansetron HCl (Ondansetron Inj 2 Mg/Ml Inj 2 Ml) 4 mg IVP Q4HR PRN PRN Reason: NAUSEA OR VOMITING Stop: 04/16/25 21:02 Ondansetron HCl (Ondansetron Inj 2 Mg/Ml Inj 2 Ml) 4 mg IVP Q6H PRN; Protocol PRN Reason: NAUSEA OR VOMITING Stop: 04/16/25 23:01 Pharmacy Consult (Vancomycin Pharmacy To Dose 1 Each Each) 1 each IV QDAY [facility] Stop: 04/17/25 08:59 Discontinued Medications Albuterol/Ipratropium (Albuterol/Ipratropium (Duoneb) Rt Julisa 3 Ml Nebu) 3 ml INH X1 ONE Stop: 03/17/25 22:44 Last Admin: 03/17/25 23:24 Dose: 3 ml Ceftriaxone Sodium/Dextrose (Rocephin/D5w 1gm Iv Premix) 1 gm in 50 mls @ 100 mls/hr IV X1 ONE Stop: 03/17/25 22:48 Last Infusion: 03/17/25 23:20 Dose: Infused Sodium Chloride (Ns) 1,000 mls @ 999 mls/hr IV .Q1H1M ONE Stop: 03/17/25 23:19 Last Admin: 03/17/25 22:48 Dose: 999 mls/hr Azithromycin 500 mg/ Sodium (Chloride) 250 mls @ 250 mls/hr IV X1 ONE Stop: 03/17/25 23:22 Labetalol HCl (Labetalol Inj 5 Mg/Ml Vial 20 Ml) 10 mg IVP Q15M PRN PRN Reason: HYPER Methylprednisolone Sodium Succinate (Methylprednisolone Sod Succ 62.5 Mg/Ml 2ml Vial) 125 mg IVP X1 ONE Stop: 03/17/25 22:44 Last Admin: 03/17/25 23:10 Dose: 125 mg Tenecteplase (Tenecteplase Inj 50 Mg Vial) 25 mg IV X1 ONE Stop: 03/17/25 21:32 Last Admin: 03/17/25 21:42 Dose: 25 mg Assessment & Plan Plan Patient is 60 years old female with past medical history of hypertension, methamphetamine use disorder, obesity presented to the ED due to right facial droop and slurred speech, was given tenecteplase 25 mg at 2141 for CVA in the ED and was admitted to ICU for further management. Neuro: #Acute CVA s/p TNK. Teleneurology was consulted in the ED, NIHSS score 5. Head CT showed no hemorrhage or mass effect. CTA did not show LVO. Patient developed right facial droop and slurred speech around 2029, TNK was given at 2142 on 03/18/2025. After TNK administration her symptoms improved significantly. Patient smokes tobacco 1 pack a day for many years and actively uses methamphetamine, last use 5 days ago per patient. Previously was diagnosed with hypertension but never been taking any medication. Plan: - Neuro checks and blood pressure monitor every 15 min for 2 h, then every 30 min for 6 h, and finally every hour for 16 h. - Manage Blood Pressure per post Thrombolytic protocol, IV labetalol PRN ordered. -?CT brain 24 hours post Thrombolytic ordered. -?NPO until swallowing screen. -?No antiplatelet agents or anticoagulants (including heparin for DVT prophylaxis) in first 24 hours. -?No Soto catheter, nasogastric tube, arterial catheter or central venous catheter for 24 hr, unless absolutely necessary. -?Bedside swallow evaluation ordered. -?HOB less than 30 degrees. - Euglycemia, glucose check Q6H. - Avoid hyperthermia, PRN acetaminophen. - DVT prophylaxis SCDs. -?Inpatient Neurology Consultation ordered. - Echo with bobble study ordered. Cardiovascular: #?CAD. #Troponinemia. On admission troponin I 0.078, BNP 380. EKG showed sinus tachycardia. Patient reports no chest pain. Likely NSTEMI type II. Per chart review patient was seen in the ED in 2021 with troponin I 16 but left AMA. Plan: - Continue trending troponin I every 6 hours. - Echo ordered. - Consider cardiology consult. Respiratory: #Aspiration pneumonia. #?COPD. Patient developed difficulty breathing and productive cough today, no fever or chills were reported. Labs showed significant leukocytosis, lactic acidosis, elevated CRP and procalcitonin. Chest x-ray showed diffuse left lung pneumonia, consider aspiration pneumonia. Per patient she was getting 3 different antibiotics over the last 3 weeks due to left lower extremity cellulitis. Patient is active tobacco smoker for many years 1 pack a day, never been diagnosed with COPD and never been prescribed home oxygen however has rescue inhalers at home. In the ED she was given breathing treatment with DuoNebs and IV methylprednisolone 125 mg x 1, sepsis alert was called in the ED. Sofa score 6 on admission to ICU. Plan: - Started on IV vancomycin and Zosyn. - Blood and sputum cultures ordered. - DuoNebs every 4 hours. - Continue supplemental oxygen. Gastrointestinal: #Obesity. #Elevated bilirubin. Elevation total bilirubin 1.4, direct bilirubin 0.6. Patient reports no abdominal pain, diarrhea. Plan: - Monitor bilirubin with daily labs. - Ordered hemoglobin A1c. Renal: #DIOR. #Lactic acidosis. On admission patient has creatinine 1.4, BUN 14, lactic acid 2.7. Last creatinine 0.8 3 years ago. Patient reports no kidney disease. In the ED was given 1 L of NS bolus and was started on 100 cc/h. Plan: - 1 L of NS bolus was ordered. - Continue trending lactic acid. - Avoid nephrotoxic agents and renally dose medications. - Follow-up morning labs. - Replete electrolytes as needed. Endocrine: No active problem. Infectious Disease: #Aspiration pneumonia. Labs showed significant leukocytosis, lactic acidosis, elevated CRP and procalcitonin. Chest x-ray showed diffuse left lung pneumonia, consider aspiration pneumonia. Plan: - Started on IV vancomycin and Zosyn. - Blood and sputum cultures ordered. #?Left lower extremity cellulitis. Patient reports that she developed left lower extremity cellulitis approximately 3 weeks ago and was prescribed 3 different antibiotics based poor response. On physical exam there is erythema and skin dryness over her left lower leg, nontender to palpation, warm to touch. Plan: - Continue current antibiotic regimen as above. - BLE ultrasound ordered to rule out DVT. Hematology/Oncology: #Leukocytosis. Likely due to underlying pneumonia, continue monitoring with daily labs. Diet: NPO. DVT prophylaxis: SCDs. GI prophylaxis: Famotidine. Code status: FULL CODE. Disposition: ICU. Plan of care discussed with attending Dr. Collins. Cordell Newton MD, PGY 3. Disclaimer: This note was dictated by speech recognition. Minor errors in vegetable grader may be present due to voice recognition software. Attending Provider Attestation/Addendum Patient was seen and examined in the ER status post TNK. The patient presented with right facial droop and slurred speech and was seen by teleneurologist. She is a chronic smoker, methamphetamine user, she has high white count high procalcitonin and chest x-ray showed pneumonia. Patient will be admitted to the ICU. Discussed with housestaff. Critical care time 45 minutes.
[2025-03-17] MEDS: AZITHROMYCIN INJ 500 MG in SODIUM CHLORIDE 0.9% 250 ML 250 ML 250 MG IV (23:44)
[2025-03-18] VITALS (44 sets, daily range): BP systolic 88–146; BP diastolic 57–93; PULSE 83–101; RESP 12–129; TEMP 36–36.6; O2SAT 88–99; BMI 38.2
[2025-03-18] MEDS: SODIUM CHLORIDE 0.9% 1000 ML 1,000 ML 999 ML IV
--- NOTE | 2025-03-18 | XR_ITS ---
Examinations: MRI Brain without intravenous contrast. MRA brain without intravenous contrast. MRA carotids without intravenous contrast 3-D vascular reconstructions Date and time of exam: March 18, 2025 1009 hours INDICATIONS: Stroke alert this a.m., onset slurred speech right-sided facial droop difficulty speaking Technique: Multiple axial and sagittal images of the brain have been obtained MRA brain carotid images without contrast obtained, including 3-D postprocessing, vascular maximum intensity projection images Findings: Sellaturcica is not enlarged. The optic chiasm and infundibular stalk are not remarkable. Prepontine and interpeduncular cisterns are not enlarged. No localized enlargement of the medulla or rhonda. Fourth ventricle and cerebellar tonsils normal in position. Subacute hemorrhage is not seen. Fourth ventricle is midline. Mass in the cerebellopontine angle region is not evident. 7th and 8th nerve complexes exhibits symmetry. Globes are symmetrical with no retro-orbital mass. Increased white matter signal moderate Diffusion-weighted images demonstrate embolic type small foci restricted diffusion in the left parietal lobe left occipital lobe left frontal lobe Mass-effect upon the ventricular system is not identified. MRA carotid images degraded by patient motion. MRA brain images short segment occlusion M1 segment left middle cerebral artery Impression: Multiple embolic type small acute infarcts left parietal lobe, left occipital lobe, left frontal lobe
--- NOTE | 2025-03-18 00:05 | XR_ITS ---
Examination: Venous duplex lower extremity sonogram, bilateral. Date and time of exam: March 18, 2025, 0419 hours INDICATIONS: Leg swelling and pain this week Technique: Multiple sonographic images of the deep venous system have been obtained. B-mode/2-D grayscale imaging of vascular structures and Doppler spectral analysis (waveforms) and color performed Both legs are examined. Findings: Deep venous systems do not demonstrate abnormal echogenicity. All visualized deep veins exhibit compressibility. All visualized deep veins exhibit augmentation. Impression: Negative for deep vein thrombosis
[2025-03-18] MEDS: Magnesium Sulfate 2 GM Ivpb 2 GM/50 ML BAG IV (00:28)
[2025-03-18] MEDS: POTASSIUM CHL 10 mEq IVPB 10 MEQ/100 ML BAG 50 MEQ IV ×2 (00:30→02:59)
[2025-03-18] MEDS: VANCOMYCIN/NS 1 GM IVPB 200 ML IV ×2 (00:34→02:57)
[2025-03-18 00:59] LABS: Reflex Lactate? Y
[2025-03-18] MEDS: PIPER/TAZO 3.375 GM PREMIX 3.375 GM/50 ML BAG IV ×2 (01:10→06:29)
--- NOTE | 2025-03-18 01:23 | XR_ITS ---
Examination: CT brain head without contrast. 2-D sagittal coronal reconstructions Date and time of exam:March 18, 2025 0135 hours INDICATIONS: Stroke alert, onset focal neurologic deficit today. COMPARISON: March 17, 2025 CTDI: vol (mGy):49.5 DLP: (mGycm):969 Technique: Multiple CT axial sections of the brain have been obtained, 5 mm slice thickness. Contrast has not been administered. 2-D sagittal, coronal reconstructions have been obtained Low dose protocols were performed. One or more of the following dose reduction techniques were used; automated exposure control, adjustment of the mA and/or KV according to patient size, use of iterative reconstruction technique. Findings: No significant ventricular enlargement. Intra-axial or extra-axial hemorrhage density is not seen. No mass effect or midline shift Basal cisterns are not remarkable. Fourth ventricle is midline. Cranial vault intact. Impression: Negative for acute hemorrhage, mass effect or midline shift
[2025-03-18 01:28] LABS: Lactic Acid, 3 HR 2.1 mMol/L (0.4-2.0)
--- NOTE | 2025-03-18 01:33 | EVENTNT_ITS ---
Documentation for date of: 03/18/25 Event Note Event Note: During ICU stay patient developed worsening lethargy and complete aphasia, right facial droop worsened significantly. Another stroke alert was called and teleneuro was consulted at 0130 03/18/2025, patient was taken to CT scan to rule out intracranial hemorrhage. After imaging I have discussed patient with teleneurologist Dr. Modi who reviewed the imaging, recommended to perform carotid ultrasound due to possible plaque on the left side, at this time no reversal of TNK is needed, no intracranial hemorrhage was found. He also confirmed there is no LVO on prior and recent CTA. Plan of care discussed with attending Dr. Collins. Cordell Newton MD, PGY 3. Disclaimer: This note was dictated by speech recognition. Minor errors in wardrobe specialty worker may be present due to voice recognition software.
--- NOTE | 2025-03-18 01:36 | XR_ITS ---
Examination: CTA carotids with intravenous contrast CTA brain, head with intravenous contrast. 2-D sagittal, coronal reconstructions. 3-D reconstructions. Exam date and time: March 18, 2025 0139 hours INDICATIONS: Stroke alert, onset of focal neurologic deficit today CTDI: vol (mGy) 11.8 DLP: (mGycm) 434 Technique: Multiple CTA axial brain, head carotid images post intravenous contrast injection 75 cc, [id number]. 2-D sagittal, coronal reconstructions. 3-D reconstructions, 3-D post processing including vascular maximum intensity projection images. Low dose protocols were performed. One or more of the following dose reduction techniques were used; automated exposure control, adjustment of the mA and/or KV according to patient size, use of iterative reconstruction technique. Findings: No significant stenosis, carotid carotid bifurcation or internal carotid artery stenoses No significant vertebral artery stenoses. Moderate calcification of the juxtasellar portions of the internal carotid arteries. Short segment occlusion of the M1 segment left middle cerebral artery proximally with 3 constitution distally Middle cerebral artery branches do fill Basilar artery posterior cerebral branches and posterior cerebral arteries fill Impression : No significant neck arterial stenoses Short segment occlusion of the M1 segment left middle cerebral artery Significant left lung pneumonia
--- NOTE | 2025-03-18 01:52 | PD.TNEURO ---
Tele Neuro Consultation Consultation Date 03/18/25 Most Recent Vital Signs Last Vital Signs Temp 97.5 F 03/17/25 21:38 Pulse 95 03/17/25 23:42 Resp 20 03/17/25 23:42 BP 100/75 03/17/25 23:42 Pulse Ox 92 L 03/17/25 23:42 O2 Del Method Nasal Cannula 03/17/25 23:42 O2 Flow Rate 2 03/17/25 23:42 Laboratory-Coagulation Panel PT 13.2 Seconds (9.0-12.2) H 03/17/25 21:10 INR 1.2 (0.9-1.3) 03/17/25 21:10 APTT 33.9 Seconds (22.0-36.0) 03/17/25 21:10 Consultation Narrative [facility] Tele[facility]rology Consult [facility] Patient Name:???Tracie Negro Date of :???1965 Identification Number:??? Date of Service:???03/18/2025 01:23:48 Diagnosis:?I63.89 - Cerebrovascular accident (CVA) due to other mechanism ([facility]) Impression: ?1. acute ischemic stroke ?- s/p TNK earlier this evening ?- repeat CT head shows no hemorrhage, there is a small area of hypodensity in Left frontal lobe concerning for possible acute ischemic stroke, slightly evolved compared to CT head from earlier this evening, correlates to the patient's symptoms. ?- reviewed initial CT and CTA, CTA showed L M1 MCA short segment stenosis, agree there is no LVO. There a soft plaque in the proximal L ICA that appears to be partially in the lumen on axial CTA, recommend carotid ultrasound to investigate further as she may need a vascular surgery evaluation pending CUS result. Suspect small vessel ischemia. ?- no indication to reverse TNK at this time, continue post TNK protocol and inpatient stroke work up per Dr Torres's recommendations earlier this evening. Advanced Imaging:CTA Head and Neck Completed. LVO:No Patient is not a candidate for MARVIN Metrics: Last Known Well: 03/17/2025 20:30:00 Dispatch Time: 03/18/2025 01:23:48 Initial Response Time: 03/18/2025 01:28:55Symptoms: R weak, aphasia. Initial patient interaction: 03/18/2025 01:28:58 NIHSS Assessment Completed: 03/18/2025 01:31:23Patient is not a candidate for Thrombolytic. Thrombolytic Medical Decision: 03/18/2025 01:28:58Patient was not deemed candidate for Thrombolytic because of following reasons: other diagnosis suspected Already received TNK. CT Head: I personally reviewed all the CT images that were available to me and it showed: small area of hypodensity in Left frontal lobe concerning for possible acute ischemic stroke, slightly evolved compared to CT head from earlier this evening, correlates to the patient's symptoms. Primary Provider Notified of Diagnostic Impression and Management Plan on: 03/18/2025 02:10:25 Spoke With: Dr Newton Able to Reach 03/18/2025 02:10:25 History of Present Illness:Patient is a 60 year old Female. Inpatient stroke alert was called for symptoms of R weak, aphasia. Tracie Negro is a 60yo woman pmh HTN, methamphetamine use, cellulitis. presented initially with slurred speech and right sided weakness, NIH was 6, was given TNK. Was fully conversant after TNK, now she is no longer speaking so repeat stroke alert was called. ? Past Medical History: ?There is no history of Atrial Fibrillation ?There is no history of Stroke Medications: Anticoagulant use:??Yes?TNK No Antiplatelet use Reviewed EMR for current medications Allergies:? Reviewed Social History: Smoking: Yes Alcohol Use: No Drug Use: Yes Family History: There is no family history of premature cerebrovascular disease pertinent to this consultation ROS : 14 Points Review of Systems was performed and was negative except mentioned in HPI. Past Surgical History: There Is No Surgical History Contributory To Today?s Visit ? Examination: BP(109/77),?Pulse(95), 1A: Level of Consciousness - Alert; keenly responsive?+ 0 1B: Ask Month and Age - Aphasic?+ 2 1C: Blink Eyes & Squeeze Hands - Performs Both Tasks?+ 0 2: Test Horizontal Extraocular Movements - Normal?+ 0 3: Test Visual Young - No Visual Loss?+ 0 4: Test Facial Palsy (Use Grimace if Obtunded) - Normal symmetry?+ 0 5A: Test Left Arm Motor Drift - No Drift for 10 Seconds?+ 0 5B: Test Right Arm Motor Drift - Drift, but doesn't hit bed?+ 1 6A: Test Left Leg Motor Drift - No Drift for 5 Seconds?+ 0 6B: Test Right Leg Motor Drift - Drift, hits bed?+ 2 7: Test Limb Ataxia (FNF/Heel-[place]) - No Ataxia?+ 0 8: Test Sensation - Normal; No sensory loss?+ 0 9: Test Language/Aphasia - Mute/Global Aphasia: No Usable Speech/Auditory Comprehension?+ 3 10: Test Dysarthria - Mute/Anarthric?+ 2 11: Test Extinction/Inattention - No abnormality?+ 0 NIHSS Score:?10 Pre-Morbid Modified [place] Scale:1 Points = No significant disability despite symptoms; able to carry out all usual duties and activities Spoke with :?Dr Newton This consult was conducted in real time using interactive audio and video technology. Patient was informed of the technology being used for this visit and agreed to proceed. Patient located in hospital and provider located at home/office setting. Patient is being evaluated for possible acute neurologic impairment and high probability of imminent or life-threatening deterioration. I spent total of 22 minutes providing care to this patient, including time for face to face visit via telemedicine, review of medical records, imaging studies and discussion of findings with providers, the patient and/or family. Dr Js Modi [facility] For Inpatient follow-up with [facility] physician please call [facility] at . As we are not an outpatient service for any post hospital discharge needs please contact the hospital for assistance. If you have any questions for the [facility] physicians or need to reconsult for clinical or diagnostic changes please contact us via [facility] at . ?
[2025-03-18] MEDS: ALBUTEROL/IPRATROPIUM (Duoneb) RT SOL 3 ML NEBU INH ×2 (01:59→06:11)
[2025-03-18] MEDS: ACETYLCYSTEINE RT SOL 10% 4 ML NEBU 3 ML INH (01:59)
--- NOTE | 2025-03-18 02:06 | XR_ITS ---
Examination: Carotid arterial duplex scan, ultrasound. Date and time of exam: March 18, 2025, 0355 hours INDICATIONS: Stroke alert today onset focal neurologic deficit Technique: Multiple sonographic images have been obtained of the carotid arteries and vertebral arteries, B-mode/grayscale imaging and Doppler spectral analysis and color flow Peak systolic and diastolic velocities have been recorded. Systolic diastolic ratios have been calculated. Findings: Right peak systolic velocities: Distal internal carotid artery peak systolic velocity is 0.5 M/sec Proximal internal carotid artery peak systolic velocity is 0.7 M/sec Carotid bifurcation peak systolic velocity is 1.1 M/sec External carotid artery peak systolic velocity is 0.7 M/sec Vertebral artery flow is antegrade. Left peak systolic velocities: Distal internal carotid artery peak systolic velocity is 0.6 M/sec Proximal internal carotid artery peak systolic velocity is 0.9 M/sec Carotid bifurcation peak systolic velocity is 1.0 M/sec External carotid artery peak systolic velocity is 0.8 M/sec Vertebral artery flow is antegrade Doppler waveform analysis demonstrates mild bilateral spectral broadening Impression: Right internal carotid artery demonstrates 20-40% stenosis. Left internal carotid artery demonstrates 20-40% stenosis.
--- NOTE | 2025-03-18 02:23 | PRELIM_ITS ---
CT scan of the head without intravenous contrast (axial sections with sagittal and coronal reformats) March 18, 2025 0135 hours Clinical history: STROKE ALERT, right sided weakness Compared with the prior study dated 03/17/2025 Findings: There is no evidence of intracranial hemorrhage, mass effect or midline shift. There is atheromatous calcification of the intracranial arteries.There are mild periventricular white matter hypodensities, likely representing chronic small vessel ischemia. There is mild volume loss. The calvarium is unremarkable. The mastoid air cells and the visualized paranasal sinuses are clear. Impression: No evidence of intracranial hemorrhage, mass effect or midline shift. Periventricular chronic small vessel ischemia and volume loss. Discussion Details: Results verbally communicated to : Dr. Vicente at 02:05 AM 03/18/2025 Report Electronically Signed By: Fco Alvarenga 03/18/2025 2:22:49 AM [EST]
--- NOTE | 2025-03-18 03:01 | PRELIM_ITS ---
CT angiogram of the head and neck with intravenous contrast (axial sections with sagittal and coronal reformats) March 18, 2025 0139 hours Clinical History: L MCA syndrome right sided weakness Findings: Head: The internal carotid and anterior cerebral arteries are patent bilaterally. There is moderate atheromatous calcification of the intracranial arteries.The right middle cerebral artery is patent. There is 90% stenosis/focal occlusion of the proximal M1 segment of the left middle cerebral artery with distal reconstitution.The intracranial vertebral arteries are patent. The vertebrobasilar junction, basilar and posterior cerebral arteries are patent. No evidence of aneurysm. Neck: The aortic arch to the extent visualized as well as the origins of the right brachiocephalic, left common carotid, and left subclavian arteries are patent. There are moderate atheromatous calcification with about 50% stenosis in the bilateral proximal internal carotid arteries.The common carotid arteries, carotid bulbs, and internal and external carotid arteries are patent. The origins of the vertebral arteries are unremarkable. The vertebral arteries are patent. No evidence of vascular occlusion, critical stenosis, dissection or aneurysm. The soft tissues of the neck are unremarkable. Moderate degenerative changes are identified in the spine. There is a large consolidation in the left upper lobe. Impression: Head: No evidence of aneurysm. 90% stenosis/focal occlusion of the M1 segment of the left middle cerebral artery with distal reconstitution. Neck: No evidence of vascular occlusion, critical stenosis, dissection or aneurysm. Moderate atheromatous calcification with about 50% stenosis in the bilateral proximal internal carotid arteries.. Findings suggestive ofleft upper lobe pneumonia. Discussion Details: Results Discussed With : Dr. Vicente at 02:34 AM 03/18/2025 Report Electronically Signed By: Fco Alvarenga 03/18/2025 3:01:14 AM [EST]
[2025-03-18 03:21] LABS: Lactate (Lactic Acid) 2.3 mMol/L (0.4-2.0)
[2025-03-18 03:30] LABS: Basophils # (Auto) 0.1 Thou/mm3 (0.0-0.2); Basophils % (Auto) 0 % (0-2.5); Eosinophils # (Auto) 0.1 Thou/mm3 (0.0-0.5); Eosinophils % (Auto) 0 % (0-10); Hematocrit 41.3 % (36.0-46.0); Hemoglobin 13.9 g/dL (12.0-16.0); Immature Granulocytes Auto 1.93 Thou/mm3 (0.00-0.00); Lymphocytes # (Auto) 1.2 Thou/mm3 (1.0-4.8); Lymphocytes % (Auto) 4 % (10-50); Mean Corpuscular HGB Conc 33.7 g/dl (31.0-37.0); Mean Corpuscular Hemoglobin 30.3 pg (25.0-35.0); Mean Corpuscular Volume 90 fL (80-100); Monocytes # (Auto) 0.7 Thou/mm3 (0.0-0.8); Monocytes % (Auto) 2 % (0-12); Neutrophils # (Auto) 26.0 Thou/mm3 (1.8-7.7); Neutrophils % (Auto) 87 % (37-80); Nucleated Red Blood Cell # 0.00 Thou/mm3 (0.00-0.00); Nucleated Red Blood Cell % 0 /100 WBC (0); Platelet Count 267 Thou/mm3 (140-440); RDW Standard Deviation 47.2 fL (36.4-46.3); Red Blood Count 4.58 Miln/mm3 (4.00-5.20); White Blood Count 30.1 Thou/mm3 (3.6-11.0)
[2025-03-18 03:36] LABS: INR 1.3 (0.9-1.3); Partial Thromboplastin Time 34.9 Seconds (22.0-36.0); Prothrombin Time 13.9 Seconds (9.0-12.2)
[2025-03-18 03:39] LABS: Glucose Estimated Average 123 mg/dL (80-131); Hemoglobin A1C 5.9 % Hgb (4.8-6.0)
[2025-03-18 03:53] LABS: Alanine Aminotransferase 9 U/L (10-49); Albumin, Serum 3.5 gm/dL (3.4-4.8); Albumin/Globulin Ratio 1.2 (1.2-2.2); Alkaline Phosphatase 82 U/L (46-116); Anion Gap 7 (7-16); Aspartate Amino Transferase 16 U/L (0-34); BUN/Creatinine Ratio 13 Ratio (12-20); Bilirubin,Total 0.9 mg/dL (0.3-1.2); Blood Urea Nitrogen 16 mg/dL (9-23); Calcium 8.4 mg/dL (8.3-10.6); Calcium (Corrected) 8.8 mg/dL (8.5-10.1); Carbon Dioxide 27.0 mMol/L (20.0-31.0); Cardiac Risk Estimate 2.2 RATIO (3.7-5.6); Chloride 101 mMol/L (98-107); Cholesterol 106 mg/dL (132-200); Creatinine (Component) 1.2 mg/dL (0.6-1.3); Estimated Creatinine Clearance 65.3 mL/min (>60); Globulin 2.9 gm/dL (2.3-3.5); Glucose 141 mg/dL (74-106); HDL Cholesterol 48 mg/dL (40-60); LDL Cholesterol,Calculated 45 mg/dL (0-130); Magnesium 2.1 mg/dL (1.6-2.6); Osmolality,Calculated 273 (275-295); Phosphorous 3.6 mg/dL (2.4-5.1); Potassium 4.5 mMol/L (3.4-5.1); Sodium 135 mMol/L (136-145); Total Protein 6.4 gm/dL (5.7-8.2); Triglycerides 67 mg/dL (30-150); eGFR 52 See Note
[2025-03-18 03:54] LABS: Troponin I 0.068 ng/mL (0.0-0.045)
[2025-03-18] MEDS: SODIUM CHLORIDE 0.9% 500 ML 500 ML 999 ML IV (04:12)
[2025-03-18 04:51] LABS: Base Excess -1 (-3-3); HCO3 25 mEq/L (20-26); Inspired Oxygen, FIO2 21 %; PCO2 48 mmHg (32.0-48.0); pH, Arterial 7.33 (7.35-7.45)
[2025-03-18 04:52] LABS: PO2 59 mmHg (83-108)
[2025-03-18 04:53] LABS: Allen Test Performed/OK; O2 Saturation 92 % (91-98); Puncture Site Right Radial
--- NOTE | 2025-03-18 05:30 | PRELIM_ITS ---
Ultrasound carotid, bilateral with wave Doppler spectral analysis. March 18, 2025 at 0355 hours Clinical history: Carotid stenosis. Correlation: Correlated with the prior CT study dated March 18, 2025. Findings: Willson scale, color flow and spectral Doppler evaluation of the carotid and vertebral arteries were performed bilaterally. Right: The common carotid, external/internal carotid and vertebral arteries demonstrate normal color flow and spectral profile. There are no focal stenotic plaques or vessel wall calcification. Normal antegrade flow is noted in the vertebral artery. Left: The common carotid, external/internal carotid and vertebral arteries demonstrate normal color flow and spectral profile. There are no focal stenotic plaques or vessel wall calcification. Normal antegrade flow is noted in the vertebral artery. Doppler profile: Right Left ICA 85 cm/sec 87 cm/sec CCA 114 cm/sec 99 cm/sec ICA/CCA 0.74 0.87 Impression: No hemodynamically significant carotid artery stenosis bilaterally. Normal antegrade flow in the vertebral arteries bilaterally. Report Electronically Signed By: Ismael Clements 03/18/2025 5:29:30 AM [EST]
--- NOTE | 2025-03-18 05:32 | PRELIM_ITS ---
Bilateral lower extremity venous Doppler ultrasound with wave Doppler spectral analysis. March 18, 2025 at 0419 hours Clinical history: Rule out deep vein thrombosis. Technique: Duplex scan of the bilateral lower extremity deep venous systems was performed utilizing 2D grayscale imaging, Doppler spectral analysis and color flow Doppler and with compression. Comparison: None available at the time of this report. Findings: Willson scale, color flow and spectral Doppler evaluation of the lower extremity deep veins was performed. Right: The common femoral, superficial femoral and popliteal veins are patent and compressible. Normal respiratory variation is noted. There is no evidence of occlusive or nonocclusive thrombus. The great saphenous vein is patent at the level of the saphenofemoral junction. Left: The common femoral, superficial femoral and popliteal veins are patent and compressible. Normal respiratory variation is noted. There is no evidence of occlusive or nonocclusive thrombus. The great saphenous vein is patent at the level of the saphenofemoral junction. Impression: No sonographic evidence of deep venous thrombosis in both lower extremities. Report Electronically Signed By: Ismael Clements 03/18/2025 5:31:46 AM [EST]
[2025-03-18 06:17] LABS: Reflex Lactate? Y
--- NOTE | 2025-03-18 07:11 | PD.RESCONSUL ---
HPI Data of Consult Requesting Physician: Paul Collins MD Admitting Provider: Paul Collins MD Attending Provider: Paul Collins MD Primary Care Provider: Physician No Primary/Family Consult Narrative History of present illness: Ms. Negro is 60 years old female with past medical history of hypertension, methamphetamine use disorder, tobacco use disorder, obesity who presented to the ED due to right facial droop and slurred speech. Her at the bedside helps with his medical history. They reported that patient woke up today was feeling extremely weak and tired and was sleeping most of the day. Around afternoon her checked on her and she was complaining of worsening respiration and productive cough, no fever or chills were reported. He came back to check on her around 8:30 PM and found her with right facial droop and slurred speech and immediately called EMS. Patient is active tobacco smoker for many years approximately 1 pack a day and prolonged history of methamphetamine use, reported last use 5 days ago. She was previously diagnosed with hypertension but never been taking any medications. She does not have diabetes. She denies any chest pain, abdominal pain, fever, chills. She reported that she was on 3 different antibiotics over the last 3 weeks for left lower extremity cellulitis which has failed to improve. She has never been diagnosed with COPD and never been prescribed home oxygen. On admission to the ED her blood pressure 96/51, pulse 104, respirations 24, temperature 97.5 ?F, oxygen saturation 97% on room air. Labs showed WBC 34.3, sodium 135, creatinine 1.4, glucose 122, lactic acid 2.7, magnesium 1.3, total bilirubin 1.4, troponin I 0.078, CRP 12.3, BNP 383, procalcitonin 25.4. CT of the head did not show hemorrhage or mass effect. CTA did not show any LVO. EKG showed sinus tachycardia. Chest x-ray showed left lower lobe pneumonia possibly aspiration. Teleneurology was consulted in the ED and recommended to administer TNK, NIHSS Score:?6. Patient was given tenecteplase 25 mg at 2142 on 03/17/2025. Her facial droop and speech has improved significantly. Patient was admitted to ICU for further management. During ICU stay patient developed worsening lethargy and complete aphasia, right facial droop worsened significantly. Another stroke alert was called and teleneuro was consulted at 0130 03/18/2025, patient was taken to CT scan to rule out intracranial hemorrhage. After imaging I have discussed patient with teleneurologist Dr. Modi who reviewed the imaging, recommended to perform carotid ultrasound due to possible plaque on the left side, at this time no reversal of TNK is needed, no intracranial hemorrhage was found. He also confirmed there is no LVO on prior and recent CTA. Patient evaluated at bedside. cc:: cc: Paul Collins MD Review of Systems Review of Systems Narrative Review of Systems: 14 point ROS negative other than HPI Exam Vital Signs Temp Pulse Resp BP Pulse Ox O2 Del Method O2 Flow Rate 97.8 F 93 19 119/66 93 L Nasal Cannula 1 03/18/25 00:00 03/18/25 06:30 03/18/25 06:30 03/18/25 06:30 03/18/25 06:30 03/17/25 23:42 03/18/25 06:14 Results Labs 03/18/25 03:09 03/18/25 03:09 Labs: Short CBC 03/17/25 03/18/25 Range/Units 21:10 03:09 WBC 34.3 H 30.1 H (3.6-11.0) Thou/mm3 Hgb 13.9 13.9 (12.0-16.0) g/dL Hct 41.0 41.3 (36.0-46.0) % Plt Count 324 267 D (140-440) Thou/mm3 BMP 03/17/25 03/18/25 21:10 03:09 Sodium 135 L 135 L Potassium 3.5 4.5 D Chloride 99 101 Carbon Dioxide 25.4 27.0 BUN 14 16 Creatinine 1.4 H 1.2 Glucose 122 H 141 H Calcium 8.9 8.4 Cardiac Enzymes 03/17/25 03/18/25 Range/Units 21:10 03:09 Troponin I 0.078 H* 0.068 H* (0.0-0.045) ng/mL Liver Function 03/17/25 03/18/25 Range/Units 21:10 03:09 Total Bilirubin 1.4 H 0.9 D (0.3-1.2) mg/dL Direct Bilirubin 0.6 H (0.0-0.3) mg/dL AST 19 16 (0-34) U/L ALT 8 L 9 L (10-49) U/L Alkaline Phosphatase 89 82 (46-116) U/L Albumin 3.5 3.5 (3.4-4.8) gm/dL ABG Interpretation ABG results: 03/17/25 03/18/25 22:10 04:43 ABG pH 7.41 7.33 L ABG pCO2 43 48 ABG pO2 60 L 59 L* ABG HCO3 27 H 25 ABG O2 Saturation 90 L 92 ABG Base Excess 2 -1 Quality Measures Quality Measures stroke Suspected type of Stroke: Acute Ischemic Last known well (date): 03/17/25 Tenecteplase given: within 60 min of arrival and sepsis Possible source: pulmonary Blood cultures ordered: yes Medications Home Medications and Allergies Home Medications ?Medication ?Instructions ?Recorded ?Confirmed ?Type No Known Home Medications 10/15/21 10/15/21 History Allergies Allergy/AdvReac Type Severity Reaction Status Date / Time latex Allergy Verified 03/25/13 14:26 Visit Medications Acetaminophen (Acetaminophen 325 Mg Tablet) 650 mg PO Q6H PRN PRN Reason: Fever >101.5 Stop: 04/16/25 23:01 Acetylcysteine (Acetylcysteine Rt Julisa 10% 4 Ml Nebu) 3 ml INH Q4HRRT PRN PRN Reason: SHORTNESS OF BREATH OR WHEEZE Stop: 04/17/25 01:29 Last Admin: 03/18/25 01:59 Dose: 3 ml Albuterol/Ipratropium (Albuterol/Ipratropium (Duoneb) Rt Julisa 3 Ml Nebu) 3 ml INH Q4HRRT [facility] Stop: 04/17/25 02:59 Last Admin: 03/18/25 06:11 Dose: 3 ml Famotidine (Famotidine Inj 10 Mg/Ml Vial 2 Ml) 20 mg IVP DAILY [facility] Stop: 04/17/25 08:59 Sodium Chloride (Ns) 1,000 mls @ 100 mls/hr IV Q10H [facility] Stop: 04/16/25 21:14 Last Admin: 03/17/25 22:13 Dose: 100 mls/hr Nicardipine/Sodium Chloride (Cardene Ivpb) 20 mg in 200 mls @ 50 mls/hr IV .Q4H PRN; Protocol PRN Reason: Per Nicardipine Stroke Protocol Stop: 04/16/25 21:30 Piperacillin/Tazobactam/Dextrose (Zosyn) 3.375 gm in 50 mls @ 12.5 mls/hr IV Q8HR [facility]; Protocol Stop: 03/24/25 23:22 Last Admin: 03/18/25 06:29 Dose: 12.5 mls/hr Vancomycin HCl/Dextrose (Vancomycin/D5w 1,250 Mg Ivpb) 250 mls @ 120 mls/hr IV BID@1000,2200 [facility]; Protocol Stop: 03/25/25 21:59 Labetalol HCl (Labetalol Inj 5 Mg/Ml Vial 20 Ml) 10 mg IVP [id number] PRN PRN Reason: SBP > 185 mmHg and/or DBP > 110 Labetalol HCl (Labetalol Inj 5 Mg/Ml Vial 20 Ml) 10 mg IVP PRNMRX1 PRN PRN Reason: SBP > 180 mmHg or DBP > 105 Ondansetron HCl (Ondansetron Inj 2 Mg/Ml Inj 2 Ml) 4 mg IVP Q6H PRN; Protocol PRN Reason: NAUSEA OR VOMITING Stop: 04/16/25 23:01 Pharmacy Consult (Vancomycin Pharmacy To Dose 1 Each Each) 1 each IV QDAY PRN PRN Reason: PROTOCOL Stop: 04/17/25 08:59 Discontinued Medications Acetylcysteine (Acetylcysteine Rt Julisa 10% 30 Ml Nebu) 3 ml INH X1 ONE Stop: 03/18/25 01:19 Albuterol/Ipratropium (Albuterol/Ipratropium (Duoneb) Rt Julisa 3 Ml Nebu) 3 ml INH X1 ONE Stop: 03/17/25 22:44 Last Admin: 03/17/25 23:24 Dose: 3 ml Ceftriaxone Sodium/Dextrose (Rocephin/D5w 1gm Iv Premix) 1 gm in 50 mls @ 100 mls/hr IV X1 ONE Stop: 03/17/25 22:48 Last Infusion: 03/17/25 23:20 Dose: Infused Magnesium Sulfate (Magnesium Sulfate Ivpb) 2 gm in 50 mls @ 25 mls/hr IV X1 ONE Stop: 03/18/25 00:18 Last Infusion: 03/18/25 04:13 Dose: Infused Sodium Chloride (Ns) 1,000 mls @ 999 mls/hr IV .Q1H1M ONE Stop: 03/17/25 23:19 Last Infusion: 03/17/25 23:49 Dose: Infused Azithromycin 500 mg/ Sodium (Chloride) 250 mls @ 250 mls/hr IV X1 ONE Stop: 03/17/25 23:22 Last Infusion: 03/18/25 01:00 Dose: Infused Potassium Chloride (Kcl Ivpb) 10 meq in 100 mls @ 100 mls/hr IV Q1H [facility] Stop: 03/18/25 01:27 Last Admin: 03/18/25 02:59 Dose: 50 mls/hr Sodium Chloride (Ns) 1,000 mls @ 999 mls/hr IV .Q1H1M ONE Stop: 03/18/25 00:29 Last Infusion: 03/18/25 02:00 Dose: Infused Piperacillin/Tazobactam/Dextrose (Zosyn) 3.375 gm in 50 mls @ 100 mls/hr IV X1 ONE Stop: 03/17/25 23:59 Last Infusion: 03/18/25 01:40 Dose: Infused Vancomycin/Sodium Chloride (Vancomycin/Ns 1 Gm Ivpb) 200 mls @ 120 mls/hr IV Q100M [facility] Stop: 03/18/25 03:04 Last Admin: 03/18/25 02:57 Dose: 120 mls/hr Sodium Chloride (Ns) 500 mls @ 999 mls/hr IV .Q31M ONE Stop: 03/18/25 04:07 Last Admin: 03/18/25 04:12 Dose: 999 mls/hr Labetalol HCl (Labetalol Inj 5 Mg/Ml Vial 20 Ml) 10 mg IVP Q15M PRN PRN Reason: HYPER Methylprednisolone Sodium Succinate (Methylprednisolone Sod Succ 62.5 Mg/Ml 2ml Vial) 125 mg IVP X1 ONE Stop: 03/17/25 22:44 Last Admin: 03/17/25 23:10 Dose: 125 mg Ondansetron HCl (Ondansetron Inj 2 Mg/Ml Inj 2 Ml) 4 mg IVP Q4HR PRN PRN Reason: NAUSEA OR VOMITING Stop: 04/16/25 21:02 Sodium Chloride (Sodium Chloride Rt 10% 15 Ml Nebu) 5 ml INH X1 ONE Stop: 03/18/25 00:19 Tenecteplase (Tenecteplase Inj 50 Mg Vial) 25 mg IV X1 ONE Stop: 03/17/25 21:32 Last Admin: 03/17/25 21:42 Dose: 25 mg Assessment & Plan Plan # Acute ischemic stroke s/p TNK Hx stroke/TIA: Hx afib: Smoking hx: yes Hx meth use, last use 5 days prior to admission Initial symptoms: right facial droop, slurred speech LKAW: Initial NIHSS: 6 --> worsening lethargy and complete aphasia, right facial droop worsened significantly in ICU --> 10 Inital BP: 96/51 EKG: Sinus tachycardia, HR 104, QTc 436 Initial glucose: 122 UDS: EtOH: <3 A1C: 5.9 Lipids: Triglycerides 67, Cholesterol 106, LDL 45, HDL 48 TSH: 3.78 Free T4: 1.45 Serial troponin: 0.078 --> 0.068 CT head w/o: negative for acute hemorrhage, mass effect, midline shift CTA head/neck w/: negative for LVO, arterial stenosis Repeat CT head w/o: negative for acute hemorrhage, mass effect, midline shift. Small area of hypodensity in Left frontal lobe concerning for possible acute ischemic stroke, slightly evolved compared to CT head from earlier this evening Repeat CTA head/neck w/: short segment occlusion Left M1 MCA Carotid doppler: Right internal carotid stenosis 20-40%, Left internal carotid stenosis 20-40% MRI/MRA w/ and w/o: TTE: Meds given: DDX: Large vessel atherosclerosis (thrombus), cardioembolic, small vessel (lacunar) disease, hypercoagulable state, arterial dissection, vasculitis, substance use Plan: - Keep BP <180/105 - Hold antiplatelets and anticoagulant for at least 24 hour after TNK - CT head w/o at 24 hour post-TNK to assess for hemorrhagic conversion - IF CT head 24 hr negative --> start ASA 81 mg daily, high intensity statin for all non-cardioembolic strokes, anticoagulation if cardioembolic (2/2 afib) - 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 Audrey Rivera, PGY1
[2025-03-18 07:23] LABS: Lactic Acid, 3 HR 2.7 mMol/L (0.4-2.0)
[2025-03-18] MEDS: RINGERS LACTATED 500 ML 500 ML 999 ML IV (07:27)
--- NOTE | 2025-03-18 07:46 | PC.CC ---
Addendum entered by Deangelo Richardson RN 03/18/25 12:04: 1130: completed transfer packet w/ 2 CDs delivered to ICU, handed packet to ambulance staff. 1126: transporation arranged. informed ICU, ambulance is on the way. 1123: Head CT, Signed TBA sent back to [facility]. Informed Cynthia. 1105: TBA completed, informed Dr. Cagle of pt's acceptance to [facility] ED. He stated he was ok with that. He clarified pt can be transported by ground stat. 1051: received call from Cynthia, Dr. Araya accepted patient to [facility] ED. TBA received to be completed. 0913: informed Cynthia CT head completed, images sent through [employer], waiting for report. 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 0818: Called [facility], spoke to Cynthia, transfer request initiated. Cynthia requested to speak to Communications Assistant, call transferred. 0813: [facility] at this time d/t capacity. We can check with them at 1400 if transfer is still need Original Note: 0723: Called [facility] to initiate transfer request. Spoke to Jojo for intake, transfer to MARINA Valentine for clinical update. Clinicals and imaging sent to [facility] and [facility]. Further information is required, Neurosx vs vascular. Called Charge Nurse Amy, florinda Mckeon contact information [phone]. She stated she will have the Intesivist provide any further information.
--- NOTE | 2025-03-18 08:48 | PCS.ST ---
Swallow Evaluation completed. See report for details. Dysphagia 1/Regular liquids. Speech/Language Evaluation initiated.
[2025-03-18] MEDS: FAMOTIDINE INJ 10 MG/ML VIAL 2 ML 20 MG IVP (08:59)
--- NOTE | 2025-03-18 09:09 | XR_ITS ---
Examination: CT brain head without contrast. 2-D sagittal coronal reconstructions Date and time of exam:March 18, 2025 0952 hours COMPARISON: March 18, 2025 0135 hours INDICATIONS: Stroke alert March 18, 2025, focal neurologic deficit CTDI: vol (mGy):49.1 DLP: (mGycm):899 Technique: Multiple CT axial sections of the brain have been obtained, 5 mm slice thickness. Contrast has not been administered. 2-D sagittal, coronal reconstructions have been obtained Low dose protocols were performed. One or more of the following dose reduction techniques were used; automated exposure control, adjustment of the mA and/or KV according to patient size, use of iterative reconstruction technique. Findings: No significant ventricular enlargement. Intra-axial or extra-axial hemorrhage density is not seen. No mass effect or midline shift Basal cisterns are not remarkable. Fourth ventricle is midline. Cranial vault intact. Impression: Negative for acute hemorrhage, mass effect or midline shift
[2025-03-18 09:16] LABS: Lactate (Lactic Acid) 3.1 mMol/L (0.4-2.0)
[2025-03-18] MEDS: LORazepam 2 MG/ML VIAL 1 MG IVP (09:50)
[2025-03-18 09:51] LABS: Collection Type, Urine Clean Catch
[2025-03-18 10:32] LABS: Amphetamine/Methamp Scrn,U Positive (Negative); Barbiturate Screen,Urine Negative (Negative); Benzodiazepines Screen,Urine Negative (Negative); Benzoylecgonine Screen, Ur Negative (Negative); Fentanyl Screen,Urine Negative (Negative); Opiate Screen,Urine Negative (Negative); THC Screen,Urine Negative (Negative)
--- NOTE | 2025-03-18 11:13 | PD.RESDS ---
Planned Discharge Date 03/18/25 DS: Providers Provider Date of admission: 03/17/25 23:17 Primary care physician: Physician No Primary/Family Admitting Provider: aPul Collins MD Attending Provider on Admission: Paul Collins MD Consults: 03/17/25 21:03 Consult to Neurology / Tele-Neurology Routine Comment: Consulting Provider: [facility] 03/17/25 23:19 Consult to Neurology / Tele-Neurology Stat Comment: CVA s/p TNK Consulting Provider: Todd Ventura 03/17/25 23:20 Referral Physical Therapy Stat Comment: Physician Instructions: Referral Speech Therapy Stat Comment: Attending Provider on DC: Beroncia Adams MD Discharging Provider: Beronica Adams MD DS: Diagnosis Problem List Completed Was Problem List Reviewed/Reconciled?: Yes Hospital Course Hospital Course Hospital course: Ms. Negro is 60 years old female with past medical history of hypertension, methamphetamine use disorder, tobacco use disorder, obesity who presented to the ED due to right facial droop and slurred speech. Her at the bedside helps with his medical history. They reported that patient woke up today was feeling extremely weak and tired and was sleeping most of the day. Around afternoon her checked on her and she was complaining of worsening respiration and productive cough, no fever or chills were reported. He came back to check on her around 8:30 PM and found her with right facial droop and slurred speech and immediately called EMS. Patient is active tobacco smoker for many years approximately 1 pack a day and prolonged history of methamphetamine use, reported last use 5 days ago. She was previously diagnosed with hypertension but never been taking any medications. She does not have diabetes. She denies any chest pain, abdominal pain, fever, chills. She reported that she was on 3 different antibiotics over the last 3 weeks for left lower extremity cellulitis which has failed to improve. She has never been diagnosed with COPD and never been prescribed home oxygen. On admission to the ED her blood pressure 96/51, pulse 104, respirations 24, temperature 97.5 ?F, oxygen saturation 97% on room air. Labs showed WBC 34.3, sodium 135, creatinine 1.4, glucose 122, lactic acid 2.7, magnesium 1.3, total bilirubin 1.4, troponin I 0.078, CRP 12.3, BNP 383, procalcitonin 25.4. CT of the head did not show hemorrhage or mass effect. CTA did not show any LVO. EKG showed sinus tachycardia. Chest x-ray showed left lower lobe pneumonia possibly aspiration. Teleneurology was consulted in the ED and recommended to administer TNK, NIHSS Score:?6. Patient was given tenecteplase 25 mg at 2142 on 03/17/2025. Her facial droop and speech has improved significantly. Patient was admitted to ICU for further management. During ICU stay patient developed worsening lethargy and complete aphasia, right facial droop worsened significantly. Another stroke alert was called and teleneuro was consulted at 0130 03/18/2025, patient was taken to CT scan to rule out intracranial hemorrhage. However her repeat CTA head/neck showed short segment occlusion of the M1 segment left middle cerebral artery. NIHSS at this time of 7. Time Spent with Patient Time attestation: Total time spent providing and/or coordinating discharge services: Time spent: Greater than 30 minutes Exam Vital Signs Temp Pulse Resp BP Pulse Ox O2 Del Method O2 Flow Rate 96.8 F 90 14 136/60 H 97 Nasal Cannula 6 03/18/25 08:00 03/18/25 10:00 03/18/25 10:00 03/18/25 10:00 03/18/25 10:00 03/18/25 10:03/18/25 10:00 Narrative Exam GEN: AOx1, unable to speak full sentences, can only repeat words. Unable to name objects or situations HEENT: NC/AC, PERRLA, oral mucosa moist, neck supple CVS: RRR, S1-S2 present, no murmurs appreciated RESP: Bronchial breathing on the left side, coarse crepitations. No respiratory distress GI: soft,non distended, non tender, NBS MSK: able to move all 4 limbs. SKIN: Lower extremity scales, mild redness, most likely secondary to venous insufficiency CASHIER CHECKER: Right-sided facial droop, no nystagmus, no lower extremity weakness, sensation grossly intact. Discharge Plan Plan Patient Disposition: [facility] Facility Pt Being Transferred to: [facility] Service Needed for Transfer: Interventionalist Patient condition on transfer: Benefits outweigh risks Prescriptions/Referrals Prescriptions/Med Rec: No Action No Known Home Medications Referrals: No Primary/Family,Physician [Primary Care Provider] - Patient/Caregiver Discharge Instructions Print Language: Citizen Of [place] Stand Alone Forms: Nataly Award Info., Patient Portal Info Letter Discharge Order Discharge Orders: Discharge (Routine); Ordered 03/18/25 Ordered By: Beronica Adams Quality Discharge Quality Measures stroke Statin ordered >75 y/o:moderate or high intensity dose on DC: no Statin ordered <75 y/o: high intensity dose on DC: no Statin not ordered due to:: not indicated Anticoagulation ordered for A-fib or flutter (current or hx): not indicated Antithrombotic ordered on DC: not indicated (describe) Attestestation MD Attestation Patient seen and examined with the above resident, Beronica Adams MD. I agree with the findings, assessment, and plan of care by separate ED visits below. Patient admitted overnight, I was contacted earlier this morning by overnight resident about neurologic status post TNK. Patient notably with repeat episode of worsening aphasia warranting repeat imaging. Unclear status of neurology radiology about presence of LVO initially. Repeat imaging was concerning and confirmatory likely. Patient had transient improvement with worsening and repeat imaging was done at the request of receiving tertiary facility. Repeat CT did not show evidence of ischemia/ infarction. Patient probably transferred to [facility] for interventional neuroradiology. Patient otherwise underwent carotid artery ultrasound which did not show any significant stenosis. Patient without any significant arrhythmia to explain potential embolization echocardiogram will be ordered should she have state. Patient will require antiplatelet therapy along with statin for hyperlipidemia. Patient's neurologic status significantly improved compared to reported status overnight. Family was at bedside and also updated prior to patient discharge with stat transfer by ambulance. Total discharge time: I personally spent 60 minutes for review of physiologic parameters, direct the plan of care, coordination of care, Patient and Family at Bedside. This Is Exclusive of Time Spent E.G. of Staff Performing Separate Billable Procedures. Patient Required Critical Care Services for Acute Ischemic Infarction with LVO. She Remains at Significant Risk for Further Morbidity or Mortality Oriented Close Monitoring and Care Only Available in the Intensive Care Unit.
[2025-03-18 11:15] LABS: Bilirubin,Urine Negative (Negative); Blood,Urine Negative (Negative); Clarity,Urine Clear (Clear/Hazy); Color,Urine Yellow (Lt Yel-Yel); Glucose, Urine Negative (Negative); Ketones,Urine Negative (Negative); Leukocyte Esterase,Urine Negative (Negative); Nitrite,Urine Negative (Negative); PH,Urine 5.0 (5.0-7.0); Protein,Urine Negative (Neg - Trace); RBC,Urine 2 /hpf (0-3); Squamous Epithelial Cell,Urine 1 /hpf (0-5); Urobilinogen,Urine Negative mg/dL (0.0-1.0); WBC,Urine 1 /hpf (0-5)
--- NOTE | 2025-03-18 11:34 | PC.NURSE ---
Report given to ER at [facility]
[2025-03-18 11:44] LABS: Specific Gravity,Urine <= 1.005 (1.001-1.035)
[2025-03-18 12:14] LABS: Reflex Lactate? Y
--- NOTE | 2025-03-18 13:47 | PC.SS ---
Patient transferred to [facility] for IR neurology.
--- NOTE | 2025-03-18 14:16 | PC.PT ---
Patient was approached at 11:36 for PT evaluation. PT was informed that patient is transferring to [facility]. As PT was standing outside the room the EMS transport was arriving to transfer the patient. Will cancel PT eval as patient is transferring to a different facility.
[2025-03-18 14:50] LABS: Cocci Serology, IgM Negative (Negative)
[2025-03-20 11:44] LABS: Cocci Serology, IgG Negative (Negative)
== END 2025-03-18 11:45 | disposition short-term general hospital (02) | DRG 45 ==
LOC: SERX 22:51 → SERHOLD 23:18 → S2SX 23:44
PROVIDERS: Student in an Organized Health Care Education/Training Program; Admitting Provider Internal Medicine; Emergency Provider Emergency Medicine; Visit Provider Internal Medicine Critical Care Medicine
DX: I63.89 Other cerebral infarction (principal); R29.810 Facial weakness; R47.1 Dysarthria and anarthria; I10 Essential (primary) hypertension; F15.90 Other stimulant use, unspecified, uncomplicated; J69.0 Pneumonitis due to inhalation of food and vomit; E66.9 Obesity, unspecified; Z68.38 Body mass index [BMI] 38.0-38.9, adult; R47.01 Aphasia; N17.9 Acute kidney failure, unspecified; E87.20 Acidosis, unspecified; L03.116 Cellulitis of left lower limb; J18.9 Pneumonia, unspecified organism; F17.210 Nicotine dependence, cigarettes, uncomplicated; G81.91 Hemiplegia, unspecified affecting right dominant side; J44.0 Chronic obstructive pulmonary disease with (acute) lower respiratory infection; E80.6 Other disorders of bilirubin metabolism; J44.1 Chronic obstructive pulmonary disease with (acute) exacerbation; R29.706 NIHSS score 6
CPT/HCPCS: 36415; 36600; 70450; 70496; 70498; 70544; 71045; 80053; 80061; 80307; 80320; 81001; 82248; 82803; 83036; 83605; 83735; 83880; 84100; 84145; 84439; 84443; 84484; 85025; 85610; 85652; 85730; 86140; 86331; 86635; 87040; 87081; 87086; 87205; 87400; 87811; 92610; 93005; 93880; 93970; 94640; 94664; 94667; 94762; 99281; 99285; A4649; A9270; J0456; J0696; J2060; J2543; J2919; J3101; J3373; J3475; J3480; J3490; J7030; J7050; J7120; J7999; Q9967; G0480

== ENCOUNTER 2025-06-27 13:00 | Outpatient (RCR) | payer MEDICAID, SELFPAY ==
--- NOTE | 2025-06-13 12:48 | PT.OIERPT ---
PT OP Initial Eval Patient Information Outpatient Physical Therapy Treatment Date: 06/13/25 Visit Reasons: Cerebrovascular accident Medical Diagnosis: I69.951 Treatment Dx #1: Right LE Weakness Treatment Dx #2: Abnormal Gait Start of Care: 06/13/25 Date of Onset: 03/18/25 Smoking Status Smoking Status: Current every day smoker Cessation Counseling Provided: NIESHA was advised that quitting smoking is the single most important factor to protect the health of themselves and their family. Discussed the benefits of quitting smoking with patient. Encouraged patient to quit smoking and provided Cessation assistance materials and resources. Tobacco Use: Cigarette Years smoked: 20 Are you interested in quitting?: No Would you like additional Smoking Cessation Counseling?: No Initial Assessment Subjective: Pt is a 60 y/o female reports of right LE weakness s/p left CVA leading to difficulty with gait, balance, chores, self care, stairs, squatting, lifting, and work duties. Pt mentioned she was transfer from [facility] to [facility] [place]. Pt did a little rehab in [place]. Objective: Right UE AROM: all motions are WNL Right UE MMTs: grossly 4-/5 Right LE AROM: all motions are WFL Right LE MMTs: grossly 3/5 Sit-Stand Test (use hands to push off): 7 reps TUG (use 4ww): 12 sec Assessment: Pt demonstrate right side weakness LE>UE s/p CVA leading to difficulty with ambulation and ADLs. Pt will benefit from physical therapy to increase mobility, strength, and work on ambulation. Short Term and Commodity Buyer Goals 1) Increase right LE MMTs grossly to 4/5 in 12 wks to be able to walk without AD 2) Increase sit to stand reps to 10 reps in 12 wks to be able to stand more than 30 mins 3) Decrease TUG score to 13 sec without 4ww in 12 wks to decrease fall risk 4) Increase right UE MMTs grossly to 4/5 in 12 wks to be able to perform work duties 5) Indep with HEP Treatment Plan 1) Manual Therapy 2) Therapeutic Activities 3) Therapeutic Exercises 4) Balance Training 5) Gait Training Frequency and Duration: 2 x wk for 12 wks Certification Dates: 06/13/25 to 09/13/25 Procedure Charges OP PT Eval Mod Complex 30 minutes: Yes
--- NOTE | 2025-06-17 14:47 | PT.ODAYNRPT ---
PT Outpatient Daily Note OP Daily Note Outpatient Physical Therapy Treatment Date: 06/17/25 Visit Reasons: Cerebrovascular accident Subjective: Pt c/o weakness and feeling sore. Objective: Please see flow sheet for ther ex list. Assessment: Interventions given alternating sitting and standing to maximize participation. Plan: Continue with pOC. Length of Time (minutes) of Treatment: 30 Minutes Procedure Charges MCL Initial 30 minutes: Yes
--- NOTE | 2025-06-20 13:59 | PT.ODAYNRPT ---
PT Outpatient Daily Note OP Daily Note Outpatient Physical Therapy Treatment Date: 06/20/25 Visit Reasons: Cerebrovascular accident Subjective: Pt mentioned she was really sore after last session. Objective: Please see flow sheet for ther ex list. Assessment: Held progressing interventions to accommodate reported pain and soreness. Plan: Continue with pOC. Length of Time (minutes) of Treatment: 30 Minutes Procedure Charges MCL Initial 30 minutes: Yes
--- NOTE | 2025-06-27 13:38 | PT.ODAYNRPT ---
PT Outpatient Daily Note OP Daily Note Outpatient Physical Therapy Treatment Date: 06/20/25 Visit Reasons: Cerebrovascular accident Subjective: No new complaints. Objective: Please see flow sheet for ther ex list. Assessment: Interventions given alternating sitting and standing to maximize participation. Pt demonstrates poor endurance with closed chain interventions. Plan: Continue with pOC. Length of Time (minutes) of Treatment: 30 Minutes Procedure Charges [facility] Initial 30 minutes: Yes Therapeutic Exercise 30 minutes: Yes
== END 2025-06-28 23:59 | disposition home or self-care (01) ==
LOC: CPTX 13:00
PROVIDERS: PCP Internal Medicine; Referring Provider Internal Medicine; Visit Provider Internal Medicine
DX: I69.951 Hemiplegia and hemiparesis following unspecified cerebrovascular disease affecting right dominant side (principal); R26.89 Other abnormalities of gait and mobility; Z71.6 Tobacco abuse counseling; F17.210 Nicotine dependence, cigarettes, uncomplicated
CPT/HCPCS: 97110; 97162

== ENCOUNTER 2025-07-18 13:30 | Outpatient (RCR) | payer MEDICAID, SELFPAY ==
--- NOTE | 2025-07-03 14:07 | PTNOTE_ITS ---
PT Outpatient Daily Note OP Daily Note Outpatient Physical Therapy Treatment Date: 07/03/25 Visit Reasons: Cerebrovascular accident Subjective: Pt wants to return back to work soon. Pt mentioned she recently seen PCP and has not been clear to work yet. Objective: Please see flow chart for list of ther ex performed Assessment: worked on GT today to focus on keeping the right foot straight and decrease outward positioning. 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 Plan: Conitnue with PT Length of Time (minutes) of Treatment: 30 Minutes Procedure Charges [facility] Initial 30 minutes: Yes
--- NOTE | 2025-07-05 14:37 | PT.ODAYNRPT ---
PT Outpatient Daily Note OP Daily Note Outpatient Physical Therapy Treatment Date: 07/05/25 Visit Reasons: Cerebrovascular accident Subjective: Pt reports she is having a lot pain on her R leg today, hard to walk and get around. Objective: Please see flow sheet for ther ex list. Assessment: Pt demonstrates poor activity tolerance today due to high pain, modified and regressed interventions. Plan: Continue with poC. Length of Time (minutes) of Treatment: 30 Minutes Procedure Charges Therapeutic Exercise 30 minutes: Yes
--- NOTE | 2025-07-16 14:03 | PT.ODAYNRPT ---
PT Outpatient Daily Note OP Daily Note Outpatient Physical Therapy Treatment Date: 07/16/25 Visit Reasons: Cerebrovascular accident Subjective: Pt reports her legs is feeling better today, pain in her leg is less than the last time she was here. Objective: Please see flow sheet for ther ex list. Assessment: Increase tolerance with interventions today, pt able to perform more interventions compared to last time she was here. Plan: Continue with POC. Length of Time (minutes) of Treatment: 30 Minutes Procedure Charges MCL Initial 30 minutes: Yes
--- NOTE | 2025-07-18 16:19 | PT.ODAYNRPT ---
PT Outpatient Daily Note OP Daily Note Outpatient Physical Therapy Treatment Date: 07/18/25 Visit Reasons: Cerebrovascular accident Assessment: Pt came into therapy session with worsening right hip and leg pain lately where she's unable to move it . Pt feels that something and is unable to resume physical therapy. Pt will follow up with PCP immediately. PT is withheld until further notice
--- NOTE | 2025-08-20 09:09 | PT.ODS1RPT ---
PT OP Progress/Discharge Note Date of Service: 08/20/25 Progress Note/DC Note Progress Note/Discharge Note: DC Note Patient Information Visit Reasons: Cerebrovascular accident Status Assessment: Pt has been seen for 6 sessions (eval + 5 visits). Pt last treated on 07/16/25. Pt has not returned to therapy. Pt has been contact multiple times without success. At this time Pt will be d/c from care due to non-compliance per attendance policy. Pt did not meet set goals in therapy; thank you for your referrals.
== END 2025-07-28 23:59 | disposition home or self-care (01) ==
LOC: CPTX 13:30
PROVIDERS: PCP Internal Medicine; Referring Provider Internal Medicine; Visit Provider Internal Medicine
DX: I69.351 Hemiplegia and hemiparesis following cerebral infarction affecting right dominant side (principal); I69.398 Other sequelae of cerebral infarction; R26.89 Other abnormalities of gait and mobility
CPT/HCPCS: 97110